=== PATIENT | female | born 1960 | race Caucasian/White ===

== ENCOUNTER → 2020-04-22 08:14 | Outpatient (BNVA) | payer OTHER, SELFPAY | PROVIDERS: PCP Family Medicine; Visit Provider Internal Medicine Cardiovascular Disease | DX: R06.00 Dyspnea, unspecified (principal); R41.9 Unspecified symptoms and signs involving cognitive functions and awareness; I10 Essential (primary) hypertension; E78.5 Hyperlipidemia, unspecified | CPT/HCPCS: 80048; 83735; 83880 ==

== ENCOUNTER 2020-06-12 14:42 | Emergency (ER) | payer OTHER, SELFPAY ==
[2020-06-12 14:43] VITALS: BP 122/63; PULSE 85; RESP 18; TEMP 37.1; O2SAT 95; BMI 26.3
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
[2020-06-12 15:42] LABS: Basophils # 0.1 10^3/uL (0.0-0.1); Basophils % 1.1 %; Eosinophils # 0.3 10^3/uL (0.0-0.8); Eosinophils % 2.8 %; Hemoglobin 15.3 g/dL (11.5-15.3); Lymphocytes # 1.6 10^3/uL (0.8-4.8); Lymphocytes % 16.7 %; Mean Corpuscular HGB Conc 33.3 g/dL (30.0-36.0); Mean Corpuscular Hemoglobin 29.9 pg (28.0-34.0); Mean Corpuscular Volume 89.8 fL (81-99); Mean Platelet Volume 11.2 fL (7.4-10.4); Monocytes # 0.7 10^3/uL (0.2-0.9); Monocytes % 6.9 %; Neutrophils # 6.87 10^3/uL (1.8-7.7); Neutrophils % 71.7 %; Nucleated Red Blood Cells % 0 %; Platelet Count 186 10^3/cmm (130-400); Red Blood Count 5.12 10^6/uL (4.1-5.3); Red Cell Distribution Width 13.2 % (12.1-15.1); White Blood Count 9.6 10^3/uL (4.0-10.0)
[2020-06-12 15:58] LABS: Albumin Level 4.4 g/dL (3.5-5.2); Potassium 3.5 mmol/L (3.5-5.1)
[2020-06-12 16:17] LABS: Alanine Aminotransferase 18 U/L (0-33); Alkaline Phosphatase 100 IU/L (35-105); Anion Gap 16.5 (5-19); Aspartate Amino Transferase 23 U/L (0-32); Blood Urea Nitrogen 8 mg/dL (8-23); Calcium 8.6 mg/dL (8.5-10.5); Carbon Dioxide 25 mmol/L (22-29); Globulin 2.5 g/dL (1.3-4.6); Glucose 112 mg/dL (65-115); Osmolality Calculated 287 mOsm/kg (285-295); Total Bilirubin 0.2 mg/dL (0.15-1.2); Total Protein 6.9 g/dL (6.6-8.7)
[2020-06-12 16:18] LABS: Chloride 101 mmol/L (98-107); Sodium 139 mmol/L (136-145)
[2020-06-12] MEDS: iohexol 300 mg/mL 100 mL Btl IV (16:25)
== END 2020-06-12 17:17 | disposition home or self-care (01) ==
PROVIDERS: Emergency Provider Physician Assistant; PCP Family Medicine
DX: S20.212A Contusion of left front wall of thorax, initial encounter (principal); S30.1XXA Contusion of abdominal wall, initial encounter; Z79.82 Long term (current) use of aspirin; I10 Essential (primary) hypertension; E78.5 Hyperlipidemia, unspecified; F17.210 Nicotine dependence, cigarettes, uncomplicated; V89.2XXA Person injured in unspecified motor-vehicle accident, traffic, initial encounter
CPT/HCPCS: 71260; 74177; 80053; 85025; 99283; Q9967

== ENCOUNTER 2020-07-06 18:27 | Inpatient (IN) | payer OTHER, SELFPAY ==
[2020-07-06 18:39] VITALS: PULSE 111; RESP 30; TEMP 37.3; O2SAT 88; BMI 25.8
--- NOTE | 2020-07-06 18:55 | CTR_ITS ---
PROCEDURE INFORMATION: Exam: CTA Chest With Contrast Exam date and time: 07/06/2020 7:42 PM Age: 60 years old Clinical indication: Shortness of breath; Patient HX: Worsening SOB x 1 week; Additional info: SOB, tachycardia, high pretest probability TECHNIQUE: Imaging protocol: Computed tomographic angiography of the chest with contrast. 3D rendering (Not supervised by radiologist): MIP and/or 3D reconstructed images were created by the technologist. Radiation optimization: All CT scans at this facility use at least one of these dose optimization techniques: automated exposure control; mA and/or kV adjustment per patient size (includes targeted exams where dose is matched to clinical indication); or iterative reconstruction. Contrast material: OMNI 350; Contrast volume: 71 ml; Contrast route: INTRAVENOUS (IV); COMPARISON: CT chest abd pel w con* 06/12/2020 4:39 PM RADIATION DOSE METRICS: Total DLP (mGy-cm): 575.02 FINDINGS: Pulmonary arteries: The pulmonary arteries are adequately opacified for evaluation to the subsegmental level. There is no filling defect to suggest embolism. Aorta: There is mild aortic atherosclerotic disease. Lungs: There are tree-in-bud opacities throughout both lungs. There is dense consolidation in the posterior and lateral basal segments of the left lower lobe. There is minimal consolidation in the lateral basal segment of the right lower lobe. Pleural spaces: There is no pleural effusion or pneumothorax. Heart: Heart size is normal. There is no pericardial effusion. There is mild coronary artery calcification. Lymph nodes: There is no mediastinal or hilar lymphadenopathy. Bones/joints: There is a nondisplaced fracture of the lateral left 9th rib with evidence of interval healing since 06/12/2020. The right ribs are unremarkable. The thoracic spine and visible portions of the clavicles, proximal humeri, and scapulae are intact. There is an acute or subacute fracture of the mid sternal body. See coronal series 601, image 49. Soft tissues: The extrathoracic soft tissues are unremarkable. Other findings: Visible structures in the upper abdomen are unremarkable. CT/CT angio chest PE protcl [id number] IMPRESSION: 1. Diffuse bilateral pulmonary tree-in-bud opacities with superimposed bilateral lower lobe consolidation consistent with infection. 2. No pulmonary embolism. 3. Subacute healing fracture of the left lateral 9th rib. 4. Acute or subacute fracture of the mid sternal body, new since 06/12/2020. Radiation Dose CTDIVOL = (mGy): DLP = 575.02 (mGy-cm)
--- NOTE | 2020-07-06 18:56 | ECG_ITS ---
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 Measurements Intervals [place] Rate: 107 P: 74 [place]: 162 QRS: 74 QRSD: 89 T: 71 QT: 317 QTc: 424 Interpretive Statements SINUS TACHYCARDIA NONSPECIFIC ST & T-WAVE ABNORMALITY No previous ECG available for comparison Electronically Signed On 07-07-2020 11:03:07 CDT by Obed Ghotra M.D. [id number] f
[2020-07-06 19:06] LABS: Basophils # 0.2 10^3/uL (0.0-0.1); Basophils % 0.8 %; Eosinophils % 0.1 %; Hematocrit 38.6 % (37.0-47.0); Hemoglobin 13.2 g/dL (11.5-15.3); Lymphocytes # 0.8 10^3/uL (0.8-4.8); Lymphocytes % 3.7 %; Mean Corpuscular HGB Conc 34.2 g/dL (30.0-36.0); Mean Corpuscular Hemoglobin 29.5 pg (28.0-34.0); Mean Corpuscular Volume 86.4 fL (81-99); Mean Platelet Volume 10.1 fL (7.4-10.4); Monocytes # 1.7 10^3/uL (0.2-0.9); Monocytes % 7.9 %; Neutrophils # 18.36 10^3/uL (1.8-7.7); Nucleated Red Blood Cells % 0 %; Platelet Count 286 10^3/cmm (130-400); Red Blood Count 4.47 10^6/uL (4.1-5.3); White Blood Count 21.4 10^3/uL (4.0-10.0)
--- NOTE | 2020-07-06 19:09 | PC.NURSE ---
EKG taken and given to provider
[2020-07-06 19:18] LABS: ABG PCO2 39.5 mmHg (35-45); ABG PH Result 7.48 (7.35-7.45); Arterial Blood Gas Hematocrit 38.4 % (37-47); Base Excess ABG 5.6 mmol/L (-2.0-2.0); Blood Gas Allen Test Pos; Blood Gas Sample Site Radial, right; Blood Gas Sample Type Arterial; HCO3 ABG 29.5 mmol/L (22-26); Oxygen Device NC; PO2 ABG 66.1 mmHg (80.0-100.0)
[2020-07-06 19:24] LABS: INR 1.14 (0.8-1.2)
[2020-07-06 19:28] LABS: Troponin(5th) Baseline 6 ng/L (0-10)
[2020-07-06 19:29] LABS: Lactic Sepsis W/Reflex 1.3 mmol/L (0.5-2.2)
[2020-07-06 19:33] VITALS: BP 120/69; PULSE 107; RESP 35; O2SAT 92
[2020-07-06 19:38] LABS: Alanine Aminotransferase 16 U/L (0-33); Albumin Level 3.7 g/dL (3.5-5.2); Alkaline Phosphatase 136 IU/L (35-105); Aspartate Amino Transferase 19 U/L (0-32); Blood Urea Nitrogen 6 mg/dL (8-23); Calcium 8.3 mg/dL (8.5-10.5); Carbon Dioxide 28 mmol/L (22-29); Chloride 85 mmol/L (98-107); Creatinine Clr Calc Pharmacy 122.0411; Globulin 2.6 g/dL (1.3-4.6); Glomerular Filtration Rate 125.9 mL/min (90-130); Glucose 149 mg/dL (65-115); NT Pro B Type Natriuretic Pept 605 pg/mL (0-125); Osmolality Calculated 260 mOsm/kg (285-295); Sodium 125 mmol/L (136-145); Total Bilirubin 0.6 mg/dL (0.15-1.2); Total Protein 6.3 g/dL (6.6-8.7)
[2020-07-06 19:40] LABS: Anion Gap 15.3 (5-19); Potassium 3.3 mmol/L (3.5-5.1)
[2020-07-06 19:43] LABS: D Dimer 2.38 ug/mIFEU (0-0.59)
--- NOTE | 2020-07-06 20:07 | PC.NURSE ---
PT to CT
[2020-07-06] MEDS: iohexol 350 mg/mL 100 mL Btl IV (20:14)
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
--- NOTE | 2020-07-06 20:56 | ECG_ITS ---
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 Measurements Intervals [place] Rate: 107 P: 81 [place]: 154 QRS: 79 QRSD: 92 T: 75 QT: 320 QTc: 427 Interpretive Statements SINUS TACHYCARDIA MINIMAL ST DEPRESSION [0.025+ mV ST DEPRESSION] No previous ECG available for comparison Electronically Signed On 07-07-2020 11:05:26 CDT by Obed Ghotra M.D. [id number]
[2020-07-06] MEDS: cefTRIAXone 1,000 MG in sodium chloride 0.9% (plus) 50 ML 100 MG IV (21:01)
[2020-07-06 21:03] VITALS: BP 137/83; PULSE 108; RESP 34; O2SAT 92
[2020-07-06] MEDS: azithromycin 500 MG in sodium chloride 0.9% 250 ML 250 MG IV (21:17)
[2020-07-06 21:22] LABS: Troponin 5 2HR 6.26 ng/L (0-10); Troponin 5 2HR Delta 0.26 ABS# (0-10)
[2020-07-06 21:30] LABS: Procalcitonin 0.18 ng/mL (0-0.5)
[2020-07-06 22:15] VITALS: BP 147/79; PULSE 113; RESP 25; O2SAT 91
[2020-07-06] MEDS: sodium chloride 0.9% 1,000 ML 150 ML IV (23:23)
[2020-07-06 23:49] VITALS: BP 156/71; PULSE 119; RESP 24; TEMP 37.8; O2SAT 91
--- NOTE | 2020-07-06 23:50 | ED_ITS ---
HPI - SOB/Dyspnea General: Chief Complaint: Shortness of Breath/Dyspnea Stated Complaint: Breathing Problem Time Seen by Provider: 07/06/20 18:47 Source: patient Mode of arrival: ambulatory Limitations: no limitations History of Present Illness: HPI Narrative: This is a 60-year-old female patient with a history of COPD who is not on oxygen chronically presents to the emergency department with worsening shortness of breath. 1 week ago she drove 6 hours to [place] for vacation and drove back again today. During her trip she developed shortness of breath and it progressively worsened and so she presents to the emergency department to be seen. On arrival to the ED she was hypoxic in triage and was placed on 4 L of oxygen via nasal cannula. Patient denies a fever at home, endorses cough, denies chest pain. She denies headaches, dizziness, or urinary symptoms MD elicited complaint: shortness of breath and cough Pertinent past history: COPD Onset (ago): hour(s) (8) Timing: constant and progressively worsening Severity: severe Exacerbating factors: nothing Relieving factors: oxygen and rest Known history of: COPD Associated symptoms: Reports cough; Deny abdominal pain, chest congestion, chest pain, diaphoresis, dizziness, extremity pain, fever(s), hemoptysis, lightheadedness, myalgias, nausea, orthopnea, palpitations, paresthesias, polydipsia, polyuria, rash, sense of impending doom, syncope or vomiting Review of Systems General: Reports: 10 or more systems reviewed and unremarkable except in HPI and below Const: Denies: fever(s) or diaphoresis Card: Denies: chest pain, palpitations, lightheadedness, syncope or orthopnea Resp: Denies: hemoptysis or chest congestion GI: Denies: abdominal pain, nausea or vomiting Musc: Denies: extremity pain Neuro: Denies: dizziness Endo: Denies: polyuria or polydipsia PFS ED PFSH: Medical History Anxiety COPD (chronic obstructive pulmonary disease) HTN (hypertension) Hyperlipidemia Surgical History H/O: hysterectomy History of appendectomy Previous back surgery Family History Mother Stroke Social History Smoking and tobacco status: former smoker Quit status (tobacco): has quit using tobacco Former quit date comment: 1 week ago Alcohol intake: current Alcohol intake frequency: holidays/special occasions only Substance/Drug Use: never Adopted: Yes Lives independently: Yes Housing: House Physical Exam Const: COMMON NORMALS: no acute distress, average body habitus, patient oriented x3, no limitations, healthy appearing, alert and well nourished HENMT: COMMON NORMALS: normocephalic, atraumatic and moist oral mucous membranes HEAD & SCALP: normocephalic and atraumatic Neck/C-Spine: COMMON NORMALS: no meningeal signs and no JVD Resp: COMMON NORMALS: normal respiratory effort, No retractions, No use of accessory muscles and percussion normal AUSCULTATION: rales and diminished lung sounds PERCUSSION: percussion normal Cardio: COMMON NORMALS: no JVD, regular rhythm, S1 normal heart sound present, S2 normal heart sound present, No gallops present (Cardio), No clicks present (Cardio), No murmurs present (Cardio), No rub (Cardio) and Peripheral pulses 2+ throughout RATE: tachycardic RHYTHM: regular rhythm HEART SOUNDS: S1 normal heart sound present and S2 normal heart sound present PERIPHERAL PULSES: Peripheral pulses 2+ throughout GI: COMMON NORMALS: Normal to inspection, nondistended, normoactive bowel sounds present, Soft to palpation, non-tender, No hepatosplenomegaly present, no masses and no bruits PALPATION: Yes Soft to palpation and Yes No hepatosplenomegaly present Extremity: COMMON NORMALS: normal to inspection, full ROM, capillary refill normal, no calf tenderness and no pedal edema Neuro: COMMON NORMALS: patient oriented x3 SENSORIUM/ORIENTATION: Yes alert MENINGEAL SIGNS: Yes no meningeal signs Skin: COMMON NORMALS: no rashes or lesions noted, no wounds, turgor normal, no jaundice, no petechiae and no mottling GENERAL SKIN EXAM: no rashes or lesions noted and turgor normal Course Reevaluation(s): Reevaluation #1: Discussed her lab and imaging findings with her. Explained that she has pneumonia and together with hypoxia will benefit from hospital admission. She also has significant leukocytosis. She voiced understanding and is in agreement with the plan. Time: 20:25 Consultations: Consultation #1: Discussed the patient with Dr. Chan, hospitalist and he kindly accepted the patient to his service. Time: 20:40 Vital Signs: Vital signs: Vital Signs Temperature 100.0 F H 07/06/20 23:49 Pulse Rate 113 H 07/07/20 01:05 Respiratory Rate 30 H 07/07/20 00:52 Blood Pressure 156/71 07/06/20 23:49 Pulse Oximetry 95 07/07/20 00:52 MDM - SOB/Dyspnea MDM Narrative: Medical decision making narrative: 60-year-old female patient who presents to the emergency department with shortness of breath and developed on a road trip back from [place]. In the emergency department she was noted to be hypoxic, tachycardic, has a low-grade temperature, has leukocytosis, and CT scan shows pneumonia. Because she was high pretest probability for a PE a CTA was done and this was negative for PE. She is meeting sepsis criteria and is admitted to the hospitalist service for further evaluation and management Lab Data: Labs: Lab Results 07/06/20 07/06/20 07/06/20 Range/Units 18:55 18:55 18:55 WBC 21.4 H (4.0-10.0) 10^3/ uL RBC 4.47 (4.1-5.3) 10^6/u L Hgb 13.2 (11.5-15.3) g/dL Hct 38.6 (37.0-47.0) % MCV 86.4 (81-99) fL MCH 29.5 (28.0-34.0) pg MCHC 34.2 (30.0-36.0) g/dL RDW 13.0 (12.1-15.1) % Plt Count 286 (130-400) 10^3/c mm MPV 10.1 (7.4-10.4) fL Neut % (Auto) 86.0 % Lymph % (Auto) 3.7 % [place] % (Auto) 7.9 % Eos % (Auto) 0.1 % Baso % (Auto) 0.8 % Neut # (Auto) 18.36 H (1.8-7.7) 10^3/u L Lymph # (Auto) 0.8 (0.8-4.8) 10^3/u L [place] # (Auto) 1.7 H (0.2-0.9) 10^3/u L Eos # (Auto) 0.0 (0.0-0.8) 10^3/u L Baso # (Auto) 0.2 H (0.0-0.1) 10^3/u L Nucleated RBC % (a uto) 0 % Nucleated RBCs # 0.0 /100WBC PT 15.00 H (12.1-14.9) SECO NDS INR 1.14 (0.8-1.2) D-Dimer 2.38 H (0-0.59) ug/mIFE U Specimen Type Sample Site ABG pH (7.35-7.45) ABG pCO2 (35-45) mmHg ABG pO2 (80.0-100.0) mmH g ABG HCO3 (22-26) mmol/L ABG Base Excess (-2.0-2.0) mmol/ L Rick Test Hematocrit (37-47) % O2 Delivery Device O2 Liters/Min % Nanotechnology Technician ID Sodium 125 L (136-145) mmol/L Potassium 3.3 L (3.5-5.1) mmol/L Chloride 85 L (98-107) mmol/L Carbon Dioxide 28 (22-29) mmol/L Anion Gap 15.3 (5-19) BUN 6 L (8-23) mg/dL Creatinine 0.5 (0.5-0.9) mg/dL GFR Calculation 125.9 (90-130) mL/min Glucose 149 H (65-115) mg/dL Calculated Osmolal ity 260 L (285-295) mOsm/k g Lactic Acid (0.5-2.2) mmol/L Calcium 8.3 L (8.5-10.5) mg/dL Total Bilirubin 0.6 (0.15-1.2) mg/dL AST 19 (0-32) U/L ALT 16 (0-33) U/L Alkaline Phosphata se 136 H (35-105) IU/L Troponin T Baselin e (0-10) ng/L Troponin T 120 Min [place] (0-10) ng/L Delta Troponin T (0-10) ABS# NT-Pro-B Natriuret Pep 605 H (0-125) pg/mL Total Protein 6.3 L (6.6-8.7) g/dL Albumin 3.7 (3.5-5.2) g/dL Globulin 2.6 (1.3-4.6) g/dL Procalcitonin (0-0.5) ng/mL 07/06/20 07/06/20 07/06/20 Range/Units 18:55 18:55 19:10 WBC (4.0-10.0) 10^3/ uL RBC (4.1-5.3) 10^6/u L Hgb (11.5-15.3) g/dL Hct (37.0-47.0) % MCV (81-99) fL MCH (28.0-34.0) pg MCHC (30.0-36.0) g/dL RDW (12.1-15.1) % Plt Count (130-400) 10^3/c mm MPV (7.4-10.4) fL Neut % (Auto) % Lymph % (Auto) % [place] % (Auto) % Eos % (Auto) % Baso % (Auto) % Neut # (Auto) (1.8-7.7) 10^3/u L Lymph # (Auto) (0.8-4.8) 10^3/u L [place] # (Auto) (0.2-0.9) 10^3/u L Eos # (Auto) (0.0-0.8) 10^3/u L Baso # (Auto) (0.0-0.1) 10^3/u L Nucleated RBC % (a uto) % Nucleated RBCs # /100WBC PT (12.1-14.9) SECO NDS INR (0.8-1.2) D-Dimer (0-0.59) ug/mIFE U Specimen Type Arterial Sample Site Radial, right ABG pH 7.48 H (7.35-7.45) ABG pCO2 39.5 (35-45) mmHg ABG pO2 66.1 L (80.0-100.0) mmH g ABG HCO3 29.5 H (22-26) mmol/L ABG Base Excess 5.6 H (-2.0-2.0) mmol/ L Rick Test Pos Hematocrit 38.4 (37-47) % O2 Delivery Device Nc O2 Liters/Min 4.0 % Nanotechnology Technician ID ellpe Sodium (136-145) mmol/L Potassium (3.5-5.1) mmol/L Chloride (98-107) mmol/L Carbon Dioxide (22-29) mmol/L Anion Gap (5-19) BUN (8-23) mg/dL Creatinine (0.5-0.9) mg/dL GFR Calculation (90-130) mL/min Glucose (65-115) mg/dL Calculated Osmolal ity (285-295) mOsm/k g Lactic Acid 1.3 (0.5-2.2) mmol/L Calcium (8.5-10.5) mg/dL Total Bilirubin (0.15-1.2) mg/dL AST (0-32) U/L ALT (0-33) U/L Alkaline Phosphata se (35-105) IU/L Troponin T Baselin e 6 (0-10) ng/L Troponin T 120 Min [place] (0-10) ng/L Delta Troponin T (0-10) ABS# NT-Pro-B Natriuret Pep (0-125) pg/mL Total Protein (6.6-8.7) g/dL Albumin (3.5-5.2) g/dL Globulin (1.3-4.6) g/dL Procalcitonin (0-0.5) ng/mL 07/06/20 07/06/20 Range/Units 20:55 20:55 WBC (4.0-10.0) 10^3/ uL RBC (4.1-5.3) 10^6/u L Hgb (11.5-15.3) g/dL Hct (37.0-47.0) % MCV (81-99) fL MCH (28.0-34.0) pg MCHC (30.0-36.0) g/dL RDW (12.1-15.1) % Plt Count (130-400) 10^3/c mm MPV (7.4-10.4) fL Neut % (Auto) % Lymph % (Auto) % [place] % (Auto) % Eos % (Auto) % Baso % (Auto) % Neut # (Auto) (1.8-7.7) 10^3/u L Lymph # (Auto) (0.8-4.8) 10^3/u L [place] # (Auto) (0.2-0.9) 10^3/u L Eos # (Auto) (0.0-0.8) 10^3/u L Baso # (Auto) (0.0-0.1) 10^3/u L Nucleated RBC % (a uto) % Nucleated RBCs # /100WBC PT (12.1-14.9) SECO NDS INR (0.8-1.2) D-Dimer (0-0.59) ug/mIFE U Specimen Type Sample Site ABG pH (7.35-7.45) ABG pCO2 (35-45) mmHg ABG pO2 (80.0-100.0) mmH g ABG HCO3 (22-26) mmol/L ABG Base Excess (-2.0-2.0) mmol/ L Rick Test Hematocrit (37-47) % O2 Delivery Device O2 Liters/Min % Nanotechnology Technician ID Sodium (136-145) mmol/L Potassium (3.5-5.1) mmol/L Chloride (98-107) mmol/L Carbon Dioxide (22-29) mmol/L Anion Gap (5-19) BUN (8-23) mg/dL Creatinine (0.5-0.9) mg/dL GFR Calculation (90-130) mL/min Glucose (65-115) mg/dL Calculated Osmolal ity (285-295) mOsm/k g Lactic Acid (0.5-2.2) mmol/L Calcium (8.5-10.5) mg/dL Total Bilirubin (0.15-1.2) mg/dL AST (0-32) U/L ALT (0-33) U/L Alkaline Phosphata se (35-105) IU/L Troponin T Baselin e (0-10) ng/L Troponin T 120 Min [place] 6.26 (0-10) ng/L Delta Troponin T 0.26 (0-10) ABS# NT-Pro-B Natriuret Pep (0-125) pg/mL Total Protein (6.6-8.7) g/dL Albumin (3.5-5.2) g/dL Globulin (1.3-4.6) g/dL Procalcitonin 0.18 (0-0.5) ng/mL Imaging Data^: CTA Chest: Attestation: I personally reviewed and interpreted this imaging study as follows: Radiologist's impression: [facility] [place], [place] [address]CX Scan ReportSigned Patient: Amy Cooper #: [id number]: 1960Acct#:[id number]/Sex: 60 / FADM Date: 07/06/20Loc: ERRoom/Bed:Attending Dr: Ordering Provider/Ordering MD: Mitchell Casas MD, [facility] [place] Date of Service: 07/06/20 Procedure(s): CT angio chest PE protcl [id number] Accession Number(s): [id number] Report Number: [id number] PROCEDURE INFORMATION: Exam: CTA Chest With Contrast Exam date and time: 07/06/2020 7:42 PM Age: 60 years old Clinical indication: Shortness of breath; Patient HX: Worsening SOB x 1 week; Additional info: SOB, tachycardia, high pretest probability TECHNIQUE: Imaging protocol: Computed tomographic angiography of the chest with contrast. 3D rendering (Not supervised by radiologist): MIP and/or 3D reconstructed images were created by the technologist. Radiation optimization: All CT scans at this facility use at least one of these dose optimization techniques: automated exposure control; mA and/or kV adjustment per patient size (includes targeted exams where dose is matched to clinical indication); or iterative reconstruction. Contrast material: OMNI 350; Contrast volume: 71 ml; Contrast route: INTRAVENOUS (IV); COMPARISON: CT chest abd pel w con* 06/12/2020 4:39 PM RADIATION DOSE METRICS: Total DLP (mGy-cm): 575.02 FINDINGS: Pulmonary arteries: The pulmonary arteries are adequately opacified for evaluation to the subsegmental level. There is no filling defect to suggest embolism. Aorta: There is mild aortic atherosclerotic disease. Lungs: There are tree-in-bud opacities throughout both lungs. There is dense consolidation in the posterior and lateral basal segments of the left lower lobe. There is minimal consolidation in the lateral basal segment of the right lower lobe. Pleural spaces: There is no pleural effusion or pneumothorax. Heart: Heart size is normal. There is no pericardial effusion. There is mild coronary artery calcification. Lymph nodes: There is no mediastinal or hilar lymphadenopathy. Bones/joints: There is a nondisplaced fracture of the lateral left 9th rib with evidence of interval healing since 06/12/2020. The right ribs are unremarkable. The thoracic spine and visible portions of the clavicles, proximal humeri, and scapulae are intact. There is an acute or subacute fracture of the mid sternal body. See coronal series 601, image 49. Soft tissues: The extrathoracic soft tissues are unremarkable. Other findings: Visible structures in the upper abdomen are unremarkable. CT/CT angio chest PE protcl [id number] IMPRESSION: 1. Diffuse bilateral pulmonary tree-in-bud opacities with superimposed bilateral lower lobe consolidation consistent with infection. 2. No pulmonary embolism. 3. Subacute healing fracture of the left lateral 9th rib. 4. Acute or subacute fracture of the mid sternal body, new since 06/12/2020. Radiation Dose CTDIVOL = (mGy): DLP = 575.02 (mGy-cm) Dictated By:Martin Wellington MDSigned By:Martin Wellington MDSigned Date/Time:07/06/202044DD/ 43 EKG Data^: EKG 1: Attestation: I personally reviewed and interpreted this EKG as follows: EKG Interpretation Date: 07/06/20 EKG interpretation time: 18:59 Prior EKG tracings: not available for review Interpretation: Sinus tachycardia. Heart rate [address] changes. EKG 2: Attestation: I personally reviewed and interpreted this EKG as follows: EKG Interpretation Date: 07/06/20 EKG interpretation time: 20:50 Prior EKG tracings: available for review Interpretation: Sinus tachycardia. Heart rate [address] changes. No significant change from earlier today. Discharge Plan Discharge Patient Disposition: Admitted As Inpatient Admit Provider: Ricci Chan Clinical Impression: Acute respiratory failure with hypoxia Sepsis Qualifiers: Sepsis type: sepsis due to unspecified organism Sepsis acute organ dysfunction status: with acute organ dysfunction Severe sepsis acute organ dysfunction type: acute respiratory failure Acute respiratory failure type: with hypoxia Severe sepsis shock status: without septic shock Qualified Code(s): A41.9 - Sepsis, unspecified organism CAP (community acquired pneumonia) Qualifiers: Laterality: unspecified laterality Qualified Code(s): J18.9 - Pneumonia, unspecified organism Sternal fracture Qualifiers: Encounter type: initial encounter Sternal location: body of sternum Fracture type: closed Qualified Code(s): S22.22XA - Fracture of body of sternum, initial encounter for closed fracture Condition: Stable Coding Level of Care Code ED Personal Lines Sales Executive for Sara Marcum
[2020-07-07] VITALS (16 sets, daily range): BP systolic 92–126; BP diastolic 53–77; PULSE 78–146; RESP 16–30; TEMP 36.4–37.2; O2SAT 85–97
[2020-07-07] MEDS: LORazepam 0.5 mg Tablet PO (00:29)
[2020-07-07] MEDS: enoxaparin 40 mg/0.4 mL Syringe SUBCUT (00:29)
[2020-07-07] MEDS: ipratropium-albuterol 3 mL Neb INHALATION ×5 (00:52→20:06)
--- NOTE | 2020-07-07 00:56 | ECG_ITS ---
[facility] ED Test Date: 2020-07-07 Pat Name: Amy Cooper Department: Room: 251 Gender: Female Booster Assembler: : 1960 Requested By: Mitchell Casas I Order Number: [id number] Jim MD: Marizol Lopez M.D. Measurements Intervals [place] Rate: 111 P: 75 NM: 183 QRS: 79 QRSD: 93 T: 76 QT: 323 QTc: 439 Interpretive Statements SINUS TACHYCARDIA MODERATE ST DEPRESSION [0.05+ mV ST DEPRESSION] Compared to ECG 07/06/2020 20:48:59 No significant changes Electronically Signed On 07-16-2020 16:36:16 CDT by Marizol Lopez M.D. [id number]
--- NOTE | 2020-07-07 01:19 | USCV_ITS ---
Kenneth Amy Age: 60 Gender: F : 1960 Exam Date: 07/07/2020 13:14 Ordering Phys: Ricci Chan MD Technologist: Gene Jacinto [place] [facility] [place] Indication: CHF BP: 124 / 73 HR: 83 Rhythm: Sinus Technical Quality: Adequate MEASUREMENTS (Male / Female) Normal Values 2D ECHO LV Diastolic Diameter PLAX 4.1 cm 4.2 - 5.9 / 3.9 - 5.3 cm LV Systolic Diameter PLAX 2.1 cm IVS Diastolic Thickness 0.9 cm 0.6 - 1.0 / 0.6 - 0.9 cm IVS Systolic Thickness 1.1 cm LVPW Diastolic Thickness 0.8 cm 0.6 - 1.0 / 0.6 - 0.9 cm LVPW Systolic Thickness 1.0 cm LVOT Diameter 2.1 cm LV Ejection Fraction 2D Teich 79.2 % LV Ejection Fraction MOD 2C 66.7 % LV Ejection Fraction 2C AL 67.5 % LA Diameter 2.5 cm LA Width 3.4 cm LA Height 4.6 cm RA Width 3.7 cm RA Height 4.1 cm Aorta at Sinotubular Diameter 1.8 cm M-MODE MV E Point Septal Separation 0.9 cm DOPPLER AV Peak Velocity 334.0 cm/s LVOT Peak Velocity 117.0 cm/s AV Area Cont Eq vti 1.4 cm squared AV Area Cont Eq pk 1.2 cm squared MV Area PHT 5.0 cm squared Mitral E to A Ratio 0.9 MV E' Velocity 48.5 cm/s Mitral E to MV E' Ratio 7.7 Mitral E to LV E' Lateral Ratio 8.6 Mitral E to LV E' Septal Ratio 6.9 TR Peak Velocity 215.0 cm/s TR Peak Gradient 18.5 mmHg TV Peak E Velocity 98.0 cm/s Right Atrial Pressure 3.0 mmHg Pulmonary Artery Systolic Pressu 21.5 mmHg PV Peak Velocity 144.0 cm/s FINDINGS Left Ventricle Normal left ventricular size. LV systolic function is normal with EF of 55-60%. No regional wall motion abnormalities. Normal diastolic function Right Ventricle The right ventricle is normal in size and function. Right Atrium The right atrium is normal in size. Left Atrium The left atrium is normal in size. Mitral Valve Structurally normal mitral valve without significant stenosis or prolapse. There is mild mitral regurgitation. Aortic Valve Grossly normal. Moderate aortic stenosis with aortic valve area of 1.2cm2 and mean gradient across the aortic valve of 21mmHg. There is mild aortic regurgitation. Tricuspid Valve Structurally normal tricuspid valve without significant stenosis or regurgitation. Insufficient TR jet to calculate RVSP Pulmonic Valve Structurally normal pulmonic valve without significant stenosis. There is no pulmonic regurgitation. Pericardium Normal pericardium without effusion. Aorta Normal ascending aorta dimension. CONCLUSIONS LV systolic function is normal with EF of 55-60% Diastolic function is normal Moderate aortic stenosis is noted. Mean gradient across the valve of 21mmHg and aortic valve area of 1.2cm2 Mild mitral regurgitation No comparison studies are available Obed Ghotra MD (Electronically Signed) Final Date: 07 Jul 2020 18:34 S
[2020-07-07] MEDS: potassium chloride ER 20 mEq Tablet 40 MEQ PO (01:58)
[2020-07-07 06:45] LABS: Basophils % 0.1 %; Eosinophils % 0.1 %; Hematocrit 36.7 % (37.0-47.0); Hemoglobin 12.2 g/dL (11.5-15.3); Lymphocytes # 1.1 10^3/uL (0.8-4.8); Lymphocytes % 4.6 %; Mean Corpuscular HGB Conc 33.2 g/dL (30.0-36.0); Mean Corpuscular Hemoglobin 29.3 pg (28.0-34.0); Mean Platelet Volume 10.9 fL (7.4-10.4); Monocytes # 1.8 10^3/uL (0.2-0.9); Monocytes % 7.7 %; Neutrophils # 20.36 10^3/uL (1.8-7.7); Neutrophils % 86.2 %; Nucleated Red Blood Cells % 0 %; Platelet Count 252 10^3/cmm (130-400); Red Blood Count 4.17 10^6/uL (4.1-5.3); Red Cell Distribution Width 13.2 % (12.1-15.1); White Blood Count 23.6 10^3/uL (4.0-10.0)
[2020-07-07 07:03] LABS: Anion Gap 13.5 (5-19); Blood Urea Nitrogen 5 mg/dL (8-23); Calcium 8.7 mg/dL (8.5-10.5); Carbon Dioxide 31 mmol/L (22-29); Chloride 89 mmol/L (98-107); Creatinine Clr Calc Pharmacy 122.0411; Glomerular Filtration Rate 125.9 mL/min (90-130); Glucose 139 mg/dL (65-115); Osmolality Calculated 270 mOsm/kg (285-295); Potassium 3.5 mmol/L (3.5-5.1); Sodium 130 mmol/L (136-145)
[2020-07-07 07:47] LABS: Slide Review Slide Review Perform
[2020-07-07] MEDS: potassium chloride ER 20 mEq Tablet PO (09:17)
[2020-07-07] MEDS: hydroCHLOROthiazide 25 mg Tablet PO (09:17)
[2020-07-07] MEDS: aspirin 81 mg EC Tablet PO (09:17)
[2020-07-07] MEDS: predniSONE 20 mg Tablet 40 MG PO (09:17)
[2020-07-07 09:52] LABS: NT Pro B Type Natriuretic Pept 1077 pg/mL (0-125)
--- NOTE | 2020-07-07 11:26 | PC.CHAP ---
Pastoral Care Encounter/Spiritual Assessment Type of Contact [] Declined resident care manager visit [] Patient/Family/Request visit [] Outpatient visit [x] Follow-up visit [] Physician referral [] Code/Alert [] Routine visit [] Staff referral [] Actively dying [] Patient sleeping [] Family support [] [] Out of room [] Palliative care [] [] Receiving care in room [] Pre-surgical visit [] Trauma [] Long length of stay [] ICU visit [] Other: Relational/Emotional Strength [] Patient feels connected with others/family/visitors/staff [] Distress [] Loneliness/isolation [] Abandonment Spirituality of Patient [] Person of Celia [] Attends Quaker of their Celia [] Believes in Prayer [] Reads Bible or Mandaen materials [] There are Spiritual issues to be addressed Film Editor Supervisor Interventions [] Prayer [] Active listening [] Non-anxious presence [] Spiritual/emotional support [] Crisis/trauma care [] Spiritual counseling [] Bereavement support [] Provided bereavement packet [] Provided Bible/devotional materials [] Provided toy/stuffed animal, coloring book to patient or family member [] Provided Communion [] Anointing/[place] [] Salvation [] Completed spiritual assessment [] Other: Impact on Illness or Injury [] Angry [] Fearful [] Anxious [] Often cries [] Exhaustion [] Unable to work [] Unable to attend sikhism [] Unable to walk/stand [] Unable to read [] Unable to drive [] Unable to eat/drink [] Unable to sleep [] Unable to be with family [] Patient intubated [] Other: Summary covid 19 Time spent with patient
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
[2020-07-07] MEDS: cefTRIAXone 1,000 MG in sodium chloride 0.9% (plus) 50 ML 100 MG IV (21:27)
[2020-07-07] MEDS: azithromycin 500 MG in sodium chloride 0.9% 250 ML 250 MG IV (22:22)
[2020-07-08] VITALS (10 sets, daily range): BP systolic 93–108; BP diastolic 49–68; PULSE 62–88; RESP 16–18; TEMP 36.6–37.1; O2SAT 91–97
[2020-07-08] MEDS: enoxaparin 40 mg/0.4 mL Syringe SUBCUT (00:19)
[2020-07-08 06:14] LABS: Basophils # 0.1 10^3/uL (0.0-0.1); Basophils % 0.4 %; Eosinophils % 0.1 %; Hematocrit 35.9 % (37.0-47.0); Hemoglobin 11.8 g/dL (11.5-15.3); Lymphocytes # 1.2 10^3/uL (0.8-4.8); Lymphocytes % 5.6 %; Mean Corpuscular HGB Conc 32.9 g/dL (30.0-36.0); Mean Corpuscular Volume 88.2 fL (81-99); Mean Platelet Volume 10.8 fL (7.4-10.4); Monocytes # 0.4 10^3/uL (0.2-0.9); Monocytes % 1.9 %; Neutrophils # 19.54 10^3/uL (1.8-7.7); Neutrophils % 90.5 %; Nucleated Red Blood Cells % 0 %; Platelet Count 307 10^3/cmm (130-400); Red Blood Count 4.07 10^6/uL (4.1-5.3); Red Cell Distribution Width 13.2 % (12.1-15.1); White Blood Count 21.6 10^3/uL (4.0-10.0)
[2020-07-08 06:45] LABS: NT Pro B Type Natriuretic Pept 1440 pg/mL (0-125); Procalcitonin 0.17 ng/mL (0-0.5)
[2020-07-08 06:57] LABS: Alanine Aminotransferase 18 U/L (0-33); Albumin Level 3.2 g/dL (3.5-5.2); Alkaline Phosphatase 166 IU/L (35-105); Anion Gap 14.9 (5-19); Aspartate Amino Transferase 17 U/L (0-32); Blood Urea Nitrogen 12 mg/dL (8-23); C Reactive Protein 134.5 mg/L (0.0-4.9); Carbon Dioxide 29 mmol/L (22-29); Chloride 95 mmol/L (98-107); Glomerular Filtration Rate 162.8 mL/min (90-130); Glucose 148 mg/dL (65-115); Magnesium 2.4 mg/dL (1.7-2.3); Osmolality Calculated 283 mOsm/kg (285-295); Phosphorus 4.4 mg/dL (2.5-4.5); Potassium 3.9 mmol/L (3.5-5.1); Sodium 135 mmol/L (136-145); Total Bilirubin 0.3 mg/dL (0.15-1.2); Total Protein 6.2 g/dL (6.6-8.7)
[2020-07-08 07:00] LABS: Creatinine Clr Calc Pharmacy 152.5514
[2020-07-08] MEDS: ipratropium-albuterol 3 mL Neb INHALATION ×2 (08:25→21:33)
[2020-07-08] MEDS: hydroCHLOROthiazide 25 mg Tablet PO (09:29)
[2020-07-08] MEDS: potassium chloride ER 20 mEq Tablet PO (09:29)
[2020-07-08] MEDS: aspirin 81 mg EC Tablet PO (09:29)
--- NOTE | 2020-07-08 09:41 | ECG_ITS ---
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 Measurements Intervals [place] Rate: 73 P: 66 [place]: 159 QRS: 63 QRSD: 82 T: 67 QT: 411 QTc: 455 Interpretive Statements SINUS RHYTHM Compared to ECG 07/07/2020 00:48:13 Sinus tachycardia no longer present ST (T wave) deviation no longer present Electronically Signed On 07-16-2020 16:29:53 CDT by Marizol Lopez M.D. [id number]
[2020-07-08 11:02] LABS: Troponin(5th) Baseline 6 ng/L (0-10)
--- NOTE | 2020-07-08 11:41 | ECG_ITS ---
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 Measurements Intervals [place] Rate: 80 P: 70 [place]: 158 QRS: 66 QRSD: 82 T: 71 QT: 388 QTc: 450 Interpretive Statements SINUS RHYTHM Compared to ECG 07/08/2020 11:34:26 No significant changes Electronically Signed On 07-16-2020 16:35:54 CDT by Marizol Lopez M.D. [id number]
[2020-07-08] MEDS: FUROsemide 10 mg/mL SDV 4mL 40 MG IVP (12:22)
[2020-07-08 13:14] LABS: Coronavirus Test Green County Not Detected
[2020-07-08 13:17] LABS: Troponin 5 2HR Delta 0 ABS# (0-10)
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
[2020-07-08 16:56] LABS: Troponin 5 6HR Delta 0 ng/L (0-12)
[2020-07-08] MEDS: cefTRIAXone 1,000 MG in sodium chloride 0.9% (plus) 50 ML 100 MG IV (21:22)
[2020-07-08] MEDS: atorvastatin 40 mg Tablet PO (21:22)
[2020-07-08] MEDS: azithromycin 500 MG in sodium chloride 0.9% 250 ML 250 MG IV (22:46)
[2020-07-09] VITALS (9 sets, daily range): BP systolic 100–128; BP diastolic 56–63; PULSE 62–98; RESP 16–19; TEMP 36.4–36.8; O2SAT 84–94
[2020-07-09] MEDS: enoxaparin 40 mg/0.4 mL Syringe SUBCUT (00:07)
[2020-07-09 05:37] LABS: Basophils # 0.1 10^3/uL (0.0-0.1); Basophils % 0.4 %; Hematocrit 36.6 % (37.0-47.0); Hemoglobin 11.9 g/dL (11.5-15.3); Lymphocytes # 1.9 10^3/uL (0.8-4.8); Lymphocytes % 6.6 %; Mean Corpuscular HGB Conc 32.5 g/dL (30.0-36.0); Mean Corpuscular Hemoglobin 28.7 pg (28.0-34.0); Mean Corpuscular Volume 88.4 fL (81-99); Mean Platelet Volume 10.6 fL (7.4-10.4); Monocytes # 0.6 10^3/uL (0.2-0.9); Monocytes % 2.1 %; Neutrophils # 25.21 10^3/uL (1.8-7.7); Neutrophils % 88.8 %; Nucleated Red Blood Cells % 0 %; Platelet Count 367 10^3/cmm (130-400); Red Blood Count 4.14 10^6/uL (4.1-5.3); Red Cell Distribution Width 13.3 % (12.1-15.1); White Blood Count 28.4 10^3/uL (4.0-10.0)
[2020-07-09 06:12] LABS: Alanine Aminotransferase 18 U/L (0-33); Alkaline Phosphatase 157 IU/L (35-105); Anion Gap 14.7 (5-19); Aspartate Amino Transferase 15 U/L (0-32); Blood Urea Nitrogen 20 mg/dL (8-23); C Reactive Protein 53.3 mg/L (0.0-4.9); Calcium 8.8 mg/dL (8.5-10.5); Carbon Dioxide 29 mmol/L (22-29); Chloride 93 mmol/L (98-107); Glucose 145 mg/dL (65-115); Magnesium 2.4 mg/dL (1.7-2.3); NT Pro B Type Natriuretic Pept 942 pg/mL (0-125); Osmolality Calculated 281 mOsm/kg (285-295); Phosphorus 4.9 mg/dL (2.5-4.5); Potassium 3.7 mmol/L (3.5-5.1); Procalcitonin 0.12 ng/mL (0-0.5); Sodium 133 mmol/L (136-145); Total Bilirubin 0.2 mg/dL (0.15-1.2)
[2020-07-09 06:32] LABS: Slide Review Slide Review Perform
[2020-07-09] MEDS: aspirin 81 mg EC Tablet PO (08:25)
[2020-07-09] MEDS: hydroCHLOROthiazide 25 mg Tablet PO (08:25)
[2020-07-09] MEDS: potassium chloride ER 20 mEq Tablet PO (08:26)
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
[2020-07-09] MEDS: ipratropium-albuterol 3 mL Neb INHALATION (14:57)
--- NOTE | 2020-07-09 16:29 | PC.RESP ---
Pulmonary Rehab information sent to patient.
== END 2020-07-09 17:25 | disposition home or self-care (01) | DRG 871 ==
LOC: ER 22:48 → MEDSURG 23:00
PROVIDERS: Admitting Provider Internal Medicine; Emergency Provider Family Medicine; PCP Family Medicine; Visit Provider Family Medicine
DX: A41.9 Sepsis, unspecified organism (principal); J18.9 Pneumonia, unspecified organism; J96.01 Acute respiratory failure with hypoxia; E87.3 Alkalosis; S22.22XA Fracture of body of sternum, initial encounter for closed fracture; E87.0 Hyperosmolality and hypernatremia; J44.0 Chronic obstructive pulmonary disease with (acute) lower respiratory infection; S22.32XD Fracture of one rib, left side, subsequent encounter for fracture with routine healing; V89.2XXD Person injured in unspecified motor-vehicle accident, traffic, subsequent encounter; V89.2XXA Person injured in unspecified motor-vehicle accident, traffic, initial encounter; F17.211 Nicotine dependence, cigarettes, in remission; E87.6 Hypokalemia; E87.70 Fluid overload, unspecified; I10 Essential (primary) hypertension; E78.5 Hyperlipidemia, unspecified; Z79.82 Long term (current) use of aspirin; Z66 Do not resuscitate
CPT/HCPCS: 36415; 36600; 71275; 80048; 80053; 82803; 83605; 83735; 83880; 84100; 84145; 84484; 85025; 85378; 85610; 86140; 86403; 87040; 87070; 87077; 87205; 87449; 87635; 93005; 93306; 94640; 96365; 96367; 96372; 99291; J0456; J0696; J1650; J1940; J2920; J7030; J7050; J7512; Q9967

== ENCOUNTER → 2020-08-18 10:00 | Outpatient (BNVA) | payer OTHER, SELFPAY | PROVIDERS: PCP Family Medicine; Visit Provider Internal Medicine Critical Care Medicine | DX: Z20.822 Contact with and (suspected) exposure to COVID-19 (principal); J44.9 Chronic obstructive pulmonary disease, unspecified | CPT/HCPCS: 87635 ==

== ENCOUNTER 2020-08-21 08:06 | Outpatient (CLI) | payer OTHER, SELFPAY ==
--- NOTE | 2020-08-21 09:44 | PFTS_ITS ---
Date of Study:08/21/20 Date of Dictation: MECHANICS: Forced vital capacity (FVC) is normal. Forced expiratory volume in one second (FEV1) is reduced. FEV1/FVC is normal. FLOW VOLUME LOOP: Reduced flow with scooping. LUNG VOLUMES: Total lung capacity (TLC) is normal. Residual volume (RV) is increased. DIFFUSING CAPACITY FOR CARBON MONOXIDE: Normal. INTERPRETATION: The prebronchodilator spirometry is consistent with moderate obstruction. The postbronchodilator spirometry is consistent with mild restriction. There is no significant postbronchodilator response. Flow volume loop is suggestive of obstructive airways disease. Lung volumes are suggestive of air trapping. The patient likely has a combined obstructive and restrictive ventilatory defect. Gas exchange (DLCO) is normal. MTDD
== END 2020-08-21 08:07 | disposition home or self-care (01) ==
PROVIDERS: PCP Family Medicine; Visit Provider Internal Medicine Critical Care Medicine
DX: J44.9 Chronic obstructive pulmonary disease, unspecified (principal)
CPT/HCPCS: 94060; 94726; 94729; J7611

== ENCOUNTER 2022-12-02 15:41 | Outpatient (CLI) | payer OTHER, SELFPAY ==
--- NOTE | 2022-12-02 14:30 | MM_ITS ---
WS: [id number] BILATERAL SCREENING DIGITAL TOMOSYNTHESIS MAMMOGRAM WITH CAD HISTORY: SCREENING COMPARISON: 09/23/2020 Bilateral CC and MLO views with tomosynthesis and synthetic mammography submitted. Computer aided det ection analyzed. Breast composition: There are scattered areas of fibroglandular density. No suspicious masses, microc alcifications or architectural distortion. IMPRESSION: MM/[place] [id number] BI-RADS: 1-Negative FOLLOW UP: 1 Year Follow-up
== END 2022-12-02 15:42 | disposition home or self-care (01) ==
LOC: MOBLMAM 15:51
PROVIDERS: PCP Family Medicine; Visit Provider Family Medicine
DX: Z12.31 Encounter for screening mammogram for malignant neoplasm of breast (principal)
CPT/HCPCS: 77063; 77067

== ENCOUNTER 2024-02-15 08:53 | Outpatient (CLI) | payer OTHER, SELFPAY ==
--- NOTE | 2024-02-15 09:20 | MM_ITS ---
WS: [id number] SCREENING DIGITAL TOMOSYNTHESIS MAMMOGRAM WITH CAD HISTORY: SCREENING COMPARISON: 12/02/2022, 09/23/2020 Bilateral CC and MLO with tomosynthesis views submitted. Synthetic mammography reviewed. Computer aid ed detection analyzed. Breast composition: The breasts are almost entirely fatty. No suspicious masses, microcalcifications or architectural distortion. MM/MM scr BI tomosynthesis [id number] IMPRESSION: BI-RADS: 1 - Negative. FOLLOW UP: 1 Year Follow-up
== END 2024-02-15 08:54 | disposition home or self-care (01) ==
LOC: MOBLMAM 08:55
PROVIDERS: PCP Family Medicine; Visit Provider Family Medicine
DX: Z12.31 Encounter for screening mammogram for malignant neoplasm of breast (principal); R92.313 Mammographic fatty tissue density, bilateral breasts
CPT/HCPCS: 77063; 77067

== ENCOUNTER 2024-12-18 09:55 | Inpatient (IN) | payer MEDICARE, OTHER, SELFPAY ==
[2024-12-18] VITALS (54 sets, daily range): BP systolic 81–144; BP diastolic 42–95; PULSE 84–113; RESP 14–30; TEMP 36.2–36.8; O2SAT 84–99; BMI 17.4; BMI 17.0
--- NOTE | 2024-12-18 09:56 | XR_ITS ---
WS: [id number] Exam: XR chest 1V portable [id number] Date/Time of Exam: 12/18/2024 9:57 AM Reason For Exam: dyspnea/cough No priors. Large masslike density identified in the RIGHT upper lobe with associated infiltrate. There is diffuse airspace consolidative areas in the mid and lower RIGHT lung also. RIGHT basal pleural effusion is noted. The LEFT lung is clear and fully expanded. Heart size is normal. The superior mediastinum is normal in contour. Bony structures are intact. XR/XR chest 1V portable [id number] IMPRESSION: 1. Large masslike density with associated infiltrate in the RIGHT upper lobe. 2. Areas of nodular consolidation identified throughout the mid and lower RIGHT lung and RIGHT basal pleural effusion.
--- NOTE | 2024-12-18 09:58 | W.ED.SOB ---
HPI - SOB/Dyspnea General: Chief Complaint: Shortness of Breath/Dyspnea Stated Complaint: SOB Time Seen by Provider: 12/18/24 09:56 History of Present Illness: HPI Narrative: 64-year-old female presents emergency room complaining of shortness of breath and cough. Patient recently diagnosed with lung cancer has not yet started chemotherapy treatment she is supposed to have what sounds like a PET scan over the weekend but had eaten so was not able to do it. Patient denies any productive cough with no fever sweats or chills. She normally wears 2 L/min on initial presentation to the emergency room she had sats in the upper 70s on 6 L she was able to improved to the mid 80s. Still has some tachypnea. Associated symptoms: Reports chest congestion; Deny abdominal pain, chest pain or fever(s) Related Data Home Medications ?Medication ?Instructions ?Recorded ?Confirmed aspirin 81 mg tablet,delayed 162 mg PO DAILY@0900 10/07/22 12/18/24 release cholecalciferol (vitamin D3) 50 50 mcg PO DAILY 10/07/22 12/18/24 mcg (2,000 unit) capsule magnesium oxide 400 mg PO DAILY 10/07/22 12/18/24 buspirone 10 mg tablet 10 mg PO BID 11/26/24 12/18/24 ondansetron HCl 4 mg tablet 4 mg PO Q4H PRN Nausea 12/18/24 12/18/24 oxycodone 5 mg tablet 5 mg PO Q4H PRN Pain 12/18/24 12/18/24 Previous Rx's ?Medication ?Instructions ?Recorded albuterol sulfate 90 mcg/actuation 2 puff inhalation Q6H PRN 12/12/20 aerosol inhaler shortness of breath or wheezing 30 days #8.5 grams furosemide 20 mg tablet (Lasix) 20 mg PO QAM PRN edema #90 tabs 04/07/21 amoxicillin 875 mg-potassium 1 tab PO BID #14 tabs 12/21/24 clavulanate 125 mg tablet ipratropium 0.5 mg-albuterol 3 mg 3 ml inhalation Q6H PRN Shortness 12/21/24 (2.5 mg base)/3 mL nebulization Of Breath Or Wheezing #90 mL soln potassium chloride 20 mEq 20 meq PO DAILY #14 tabs 12/21/24 tablet,extended release(part/cryst) (Klor-Con M) prednisone 5 mg tablets in a dose See Rx Instructions PO .COMPLEX 12/21/24 pack #21 ea Allergies Allergy/AdvReac Type Severity Reaction Status Date / Time acetaminophen (From Tylenol) AdvReac ALGY-Rash Verified 11/26/24 10:01 Review of Systems Const: Denies: fever(s) or chills Card: Denies: chest pain Resp: Reports: dyspnea, productive cough, wheezing and chest congestion GI: Denies: abdominal pain : Denies: dysuria, urinary frequency or urinary urgency Musc: Denies: neck pain or back pain Skin/Breast: Denies: rash PFSH ED PFSH: Medical History COPD (chronic obstructive pulmonary disease) Anxiety HTN (hypertension) Hyperlipidemia Surgical History H/O: hysterectomy Previous back surgery History of appendectomy Family History Mother Stroke Social History Smoking and tobacco/nicotine status: current every day tobacco/nicotine user Quit status (tobacco/nicotine): has quit using Year quit tobacco: 2020 Former quit date comment: Hx of 1PPD x 44 Years Alcohol intake: former Substance/Drug Use: never Adopted: Yes Lives independently: Yes Household members: none Housing: House Marital status: / Current occupational status: unemployed Do you think of yourself as: Straight/Heterosexual Current gender identity: Female Physical Exam Const: GENERAL APPEARANCE: cooperative ORIENTATION/CONSCIOUSNESS: Yes awake, Yes oriented to person, Yes oriented to place and Yes oriented to time HENMT: COMMON NORMALS: normocephalic, atraumatic and hearing grossly normal bilaterally HEAD & SCALP: normocephalic and atraumatic Resp: EFFORT & INSPECTION: Yes tachypneic and Yes uses accessory muscles AUSCULTATION: rhonchi and wheezes Cardio: COMMON NORMALS: regular rate, regular rhythm and No murmurs present (Cardio) RATE: regular rate RHYTHM: regular rhythm GI: COMMON NORMALS: Soft to palpation and No hepatosplenomegaly present AUSCULTATION: Yes normoactive bowel sounds PALPATION: Yes Soft to palpation, No Tenderness to palpation present (GI), No Guarding due to palpation present (GI) and Yes No hepatosplenomegaly present Extremity: COMMON NORMALS: normal to inspection, capillary refill normal, no clubbing, cyanosis or edema, no calf tenderness and no pedal edema Neuro: SENSORIUM/ORIENTATION: Yes oriented to person, Yes oriented to place and Yes oriented to time Skin: COMMON NORMALS: no rashes or lesions noted GENERAL SKIN EXAM: no rashes or lesions noted Course Vital Signs: Vital signs: Vital Signs Temperature 98.3 F 12/21/24 11:00 Pulse Rate 84 12/21/24 15:06 Respiratory Rate 16 12/21/24 11:00 Blood Pressure 129/67 12/21/24 15:06 Pulse Oximetry 92 12/21/24 15:06 Oxygen Delivery Me thod Nasal Cannula 12/21/24 08:00 Oxygen Flow Rate 2 12/21/24 11:00 Fraction of Inspir ed Oxygen 40 12/19/24 03:38 MDM - SOB/Dyspnea Medical Decision Making Patient presents with sepsis with leukocytosis White count of 32,000 with a left shift. Blood gas shows pCO2 45 and a pO2 of 46. She is on BiPAP at this time her first lactic is 4.4. UA shows 11-20 white blood cells per high-power field. Flu COVID and RSV are negative. Chest x-ray shows no pneumonia likely related to partial obstruction from her lung tumor. Will treat for sepsis antibiotics initiated sepsis fluid bolus given. Discussed with hospitalist orders written. CTA shows tumor in the right upper lobe with pneumonia. No pneumothorax there is lymphangitic spread of the tumor there is no evidence of PE. Incidental notation of cirrhotic appearance of liver Medical Records I reviewed the patient's medical records. Lab Data I reviewed the patient's lab results. 12/20/24 05:09 12/21/24 04:57 Labs/Radiology: Radiology Impressions Chest X-Ray 12/18/24 09:56 IMPRESSION: 1. Large masslike density with associated infiltrate in the RIGHT upper lobe. 2. Areas of nodular consolidation identified throughout the mid and lower RIGHT lung and RIGHT basal pleural effusion. Chest CTA 12/18/24 10:27 IMPRESSION: 1. Large lobulated solid mass centered in the RIGHT upper lobe extending into the hilum and mediastinum and along the fissure. Mass measures 7.4 x 7.3 x 7.3 cm. Highly suspicious for neoplasm. 2. Additional nodules and interstitial stranding in the RIGHT upper lobe highly suspicious for lymphangitic spread of tumor and additional metastatic sites. 3. Peripheral irregular opacifications in the RIGHT upper, middle and lower lobes. Suspect this is additional tumor extension which may be pleural-based. Some of the opacifications may be pneumonia or postobstructive atelectasis. 4. No pulmonary embolism. 5. Severe centrilobular emphysema. 6. Mediastinal and hilar lymphadenopathy. 7. Cirrhotic appearing liver. 8. Neither adrenal gland is well visualized. Laboratory Results WBC 32.98 10^3/uL (3.29-11.43) H* 12/18/24 09:05 RBC 5.14 10^6/uL (3.85-5.65) 12/18/24 09:05 Hgb 14.30 g/dL (11.27-16.99) 12/18/24 09:05 Hct 45.8 % (36-47) 12/18/24 09:05 MCV 89.1 fl (85-98) 12/18/24 09:05 MCH 27.8 pg (27-33) 12/18/24 09:05 MCHC 31.2 g/dL (30-55) 12/18/24 09:05 RDW 14.0 % (12.1-15.1) 12/18/24 09:05 Plt Count 428 10^3/cmm (157-399) H 12/18/24 09:05 MPV 10.9 fL (7.4-10.4) H 12/18/24 09:05 Neut % (Auto) 89.8 % 12/18/24 09:05 Lymph % (Auto) 2.6 % 12/18/24 09:05 Swain % (Auto) 6.7 % 12/18/24 09:05 Eos % (Auto) 0.1 % 12/18/24 09:05 Baso % (Auto) 0.3 % 12/18/24 09:05 Neut # (Auto) 29.59 10^3/uL (1.8-7.7) H 12/18/24 09:05 Lymph # (Auto) 0.9 10^3/uL (0.8-4.8) 12/18/24 09:05 Swain # (Auto) 2.2 10^3/uL (0.2-0.9) H 12/18/24 09:05 Eos # (Auto) 0.0 10^3/uL (0.0-0.8) 12/18/24 09:05 Baso # (Auto) 0.1 10^3/uL (0.0-0.1) 12/18/24 09:05 Nucleated RBC % (auto) 0 % 12/18/24 09:05 Nucleated RBCs # 0.0 /100WBC 12/18/24 09:05 Specimen Type Arterial 12/18/24 10:18 Sample Site Radial, left 12/18/24 10:18 ABG pH 7.41 (7.35-7.45) 12/18/24 10:18 ABG pCO2 45.3 mmHg (35-45) H 12/18/24 10:18 ABG pO2 46.8 mmHg (80.0-100.0) L 12/18/24 10:18 ABG PO2/FiO2 Ratio 106 12/18/24 10:18 ABG HCO3 28.8 mmol/L (22-26) H 12/18/24 10:18 ABG O2 Saturation 83.2 12/18/24 10:18 ABG Base Excess 3.5 mmol/L (-2.0-2.0) H 12/18/24 10:18 Rick Test Pos 12/18/24 10:18 A-a O2 Gradient 27.6 mmHg (5-10) H 12/18/24 10:18 Hematocrit 42.5 % (37-47) 12/18/24 10:18 Hgb O2 Saturation 81.6 % (95-100) L 12/18/24 10:18 Carboxyhemoglobin 1.9 %THgb (0.4-20.1) 12/18/24 10:18 Methemoglobin 0.0 % (0.4-1.5) L 12/18/24 10:18 Total Hemoglobin 13.9 g/dL (12-16) 12/18/24 10:18 Sodium 140.0 mmol/L (131-143) 12/18/24 10:18 Potassium 3.6 mmol/L (3.5-5.0) 12/18/24 10:18 Glucose 158.0 mg/dL (70-115) H 12/18/24 10:18 Ionized Calcium 1.2 mmol/L (1.1-1.4) 12/18/24 10:18 O2 Delivery Device Nc 12/18/24 10:18 O2 Liters/Min 6.0 % 12/18/24 10:18 FiO2 44.0 % 12/18/24 10:18 Tree Care Foreman ID [place] 12/18/24 10:18 Sodium 141 mmol/L (136-145) 12/18/24 09:05 Potassium 3.7 mmol/L (3.5-5.1) 12/18/24 09:05 Chloride 96 mmol/L (98-107) L 12/18/24 09:05 Carbon Dioxide 28 mmol/L (22-29) 12/18/24 09:05 Anion Gap 20.7 (5-19) H 12/18/24 09:05 BUN 18 mg/dL (8-23) 12/18/24 09:05 Creatinine 0.5 mg/dL (0.5-0.9) 12/18/24 09:05 GFR Calculation 124.2 mL/min (90-130) 12/18/24 09:05 Glucose 165 mg/dL (65-115) H 12/18/24 09:05 Calculated Osmolality 298 mOsm/kg (285-295) H 12/18/24 09:05 Lactic Acid 4.4 mmol/L (0.5-2.2) H* 12/18/24 10:38 Calcium 9.7 mg/dL (8.5-10.5) 12/18/24 09:05 Total Bilirubin 0.5 mg/dL (0.15-1.2) 12/18/24 09:05 AST 22 U/L (0-32) 12/18/24 09:05 ALT 15 U/L (0-33) 12/18/24 09:05 Alkaline Phosphatase 162 U/L (35-105) H 12/18/24 09:05 Total Protein 7.4 g/dL (6.6-8.7) 12/18/24 09:05 Albumin 3.6 g/dL (3.5-5.2) 12/18/24 09:05 Globulin 3.8 g/dL (1.3-4.6) 12/18/24 09:05 Urine Color Yellow (Yellow) 12/18/24 10:54 Urine Appearance Cloudy (CLEAR) A 12/18/24 10:54 Urine pH 5.5 (5-7) 12/18/24 10:54 Ur Specific [place] 1.025 (1.005-1.030) 12/18/24 10:54 Urine Protein 2+ (Negative) A 12/18/24 10:54 Urine Glucose (UA) Negative (Normal) 12/18/24 10:54 Urine Ketones Trace (Negative) 12/18/24 10:54 Urine Blood Trace (Negative) A 12/18/24 10:54 Urine Nitrate Negative (Negative) 12/18/24 10:54 Urine Bilirubin Negative (Negative) 12/18/24 10:54 Urine Urobilinogen 1.0 mg/dL (Negative) 12/18/24 10:54 Ur Leukocyte Esterase Negative (Negative) 12/18/24 10:54 Urine RBC 3-5 /hpf (0-2) 12/18/24 10:54 Urine WBC 11-20 /hpf (0-5) H 12/18/24 10:54 Ur Squamous Epith Cells 6-10 /hpf (0-5) 12/18/24 10:54 Amorphous Sediment Not Reportable 12/18/24 10:54 Urine Bacteria None seen /hpf (NONE) 12/18/24 10:54 Hyaline Casts 88.13 /lpf 12/18/24 10:54 Influenza A (PCR) Negative (Negative) 12/18/24 10:35 Influenza Type B (PCR) Negative (Negative) 12/18/24 10:35 RSV (PCR) Negative (Negative) 12/18/24 10:35 SARS-CoV-2 (PCR) Negative (Negative) 12/18/24 10:35 All radiology interpretation(s) finalized by discharge EKG Data EKG 1: Interpretation: EKG 1111 2024-11-08 sinus tachycardia rate 113. [place] 136 QTc [address] changes noted EKG compared to 07/08/2020 rate is increased but otherwise no acute changes. Critical Care Time Critical Care Time: Critical Care Time: Yes Total Critical Care Time: 40 Attestation: The high probability of a clinically significant, sudden or life threatening deterioration of the patient's cardiovascular respiratory system(s) required my full and direct attention, intervention and personal management. The critical care time is as shown. This time is in addition to time spent performing any reported procedures but includes the following: [x] Data and vital sign review and interpretation [x] Patient assessment, examination and intervention [x] Documentation [x] Medication orders and management Discharge Plan Discharge Patient Disposition: Admitted As Inpatient Admit Provider: Martin Barraza Clinical Impression: Acute and chronic respiratory failure with hypoxia, Small cell lung cancer, right upper lobe, Sepsis, Pneumonia, Cystitis Condition: Stable Discharge Diet: Regular Discharge Activity: Increase activity as tolerated Coding Level of Care Code ED Blow Off Worker for Sara Marcum
--- NOTE | 2024-12-18 10:02 | ECG_ITS ---
[facility]: 2024-12-18 Pat Name: Amy Cooper Department: Room: Gender: Female Chalk Cutter: : 1960 Requested By: Chato Reich Order Number: [id number] Jim MD: Ever Norman M.D. Measurements Intervals [place] Rate: 113 P: 77 KS: 136 QRS: 76 QRSD: 90 T: 71 QT: 314 QTc: 432 Interpretive Statements SINUS TACHYCARDIA ABNORMAL RHYTHM ECG Compared to ECG 07/08/2020 14:12:34 no significant change Electronically Signed On 12-19-2024 20:27:21 [employer]APERY HEMMER [employer] by Ever Norman M.D. [email or web address]
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
--- OUTSIDE RECORDS SUMMARY | 2024-12-18 10:02 | XMS_ITS | Encounter Summary ---
Author Organization [facility] Address [address] [place] [address] Care Team Providers Care Insulation Installer Name Role Phone Fred Bethea Primary Care Provider [phone] Reason for Referral * Outpatient Services (Routine) - Closed Specialty Diagnoses / Procedures Referred By Conthaydee t Referred To Contact Radiology Diagnoses Screening mammogram, encounter for Procedures MAMMO SCREEN BILAT W OR WO CAD Fred Bethea FNP Phone: tel: fax: [facility] [place] [address] [facility] [facility] [address] [facility] [place] [address] Phone: tel: fax: Referral ID Status Reason Start Date Expiration Date V isits Requested Visits Authorized [id number] Closed PAN View CTS to Schedule (SGF) 03/29/2016 04/29/2017 1 1 LINE WORKER Encounter Details Date Type Department Care Team (Latest Contact Info) Description 03/29/2016 Ancillary Orders [facility] Centralized Scheduling [address] [facility] [address] [place] [address] Ferd Bethea FNP [id number] [facility] [address] [place] [address] Screening mammogram, encounter for Social History Tobacco Use Types Packs/Day Years Used Date Smoking Tobacco: Never Assessed Comments Unknown Sex and Gender Information Value Date Recorded Sex Assigned at Not on file Legal Sex Female 12:48 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 This examination was reviewed with the aid of a computer-aided detection system(CAD). The breast tissue density is fatty. No significant new findings since the prior mammogram(s). Fred ADKINS MAMMO ORDERABLES Final Result documented in this encounter Visit Diagnoses Diagnosis Screening mammogram, encounter for Screening mammogram, encounter for documented in this encounter Care Teams Insulation Installer Relationship Specialty Start Date End Date Fred Bethea FNP PCP - General NURSE PRACTITIONER 04/08/16 documented as of this encounter
--- OUTSIDE RECORDS SUMMARY | 2024-12-18 10:02 | XMS_ITS | Encounter Summary ---
Author Organization [facility] Address [address] [place] [address] Care Team Providers Care Seam Sewer Name Role Phone Fred Bethea Primary Care Provider [phone] Reason for Referral * Outpatient Services (Routine) - Closed Specialty Diagnoses / Procedures Referred By Scott rodriguez Referred To Contact Radiology Diagnoses Breast cancer screening Procedures MAMMO SCREEN BILAT W OR WO CAD Fred Bethea FNP Phone: tel: fax: [facility] [address] [facility] [address] [place] [address] Phone: tel: fax: Referral ID Status Reason Start Date Expiration Date V isits Requested Visits Authorized [id number] Closed VAN View CTS to Schedule (SGF) 05/05/2017 06/05/2018 1 1 Encounter Details Date Type Department Care Team (Latest Contact Info) Description 05/05/2017 Ancillary Orders [facility] Centralized Scheduling [address] [facility] [address] [place] [address] Fred Bethea FNP [phone] [facility] [address] [place] [address] Breast cancer screening Social History Tobacco Use Types Packs/Day Years Used Date Smoking Tobacco: Never Assessed Comments Unknown Sex and Gender Information Value Date Recorded Sex Assigned at Not on file Legal Sex Female 12:48 PM SCOWMAN Gender Identity Not on file Sexual Orientation Not on file documented as of this encounter Plan of Treatment Not on file documented as of this encounter Results * MAMMO SCREEN BILAT W OR WO CAD (05/10/2017 2:55 PM CDT) Anatomical Region Laterality Modality Breast Bilateral Mammography Narrative 05/12/2017 8:31 AM CDT Bilateral Mammogram Reason for Exam: Screening Comparison: Compared to: 04/08/2016 MAMMO SCREEN BILAT W OR WO CAD, 09/26/2012 MAMMO PRIOR STUDY , 09/25/2012 MAMMO PRIOR STUDY , and 08/14/2011 [...] documented in this encounter Visit Diagnoses Diagnosis Breast cancer screening Breast screening, unspecified Breast cancer screening Breast screening, unspecified documented in this encounter Care Teams Seam Sewer Relationship Specialty Start Date End Date Fred Bethea FNP PCP - General NURSE PRACTITIONER 04/08/16 documented as of this encounter
--- OUTSIDE RECORDS SUMMARY | 2024-12-18 10:02 | XMS_ITS | Encounter Summary ---
Author Organization [facility] Address [address] [place] [address] Care Team Providers Care Yarn Winder Name Role Phone Fred Bethea Primary Care Provider [phone] Encounter Details Date Type Department Care Team (Latest Contact Info) Description 04/29/2017 Ancillary Orders [facility] Pre-Registration [place] CALL TO MAKE APPOINTMENT ONLY [address] [place] [address] Fred Bethea FNP [address] [id number] Encounter for screening mammogram for malignant neoplasm of breast Social History Tobacco Use Types Packs/Day Years Used Date Smoking Tobacco: Never Assessed Comments Unknown Sex and Gender Information Value Date Recorded Sex Assigned at Not on file Legal Sex Female 12:48 PM TEAR DOWN 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
--- OUTSIDE RECORDS SUMMARY | 2024-12-18 10:02 | XMS_ITS | Clinical Summary ---
Author Organization [facility] Address [address] [place] [address] Phone Care Team Providers Care Jukebox Operator Name Role Phone Dedra Ritchie Primary Care Provider [phone] Allergies Active Allergy Reactions Criticality Noted Date Comments Acetaminophen Hives High 01/22/2019 Medications baclofen (LIORESAL) 10 mg tablet Take 10 mg by mouth daily at bedtime. 0 Active omeprazole (PriLOSEC) 40 mg Capsule, Delayed Release(E.C.)Ind ications:Gastroe sophageal reflux disease without esophagitis Take 1 Capsule (40 mg) by mouth daily. 30 Capsule 1 9 Active busPIRone (BUSPAR) 10 mg tablet Take 10 mg by mouth 2 times daily. 0 Active potassium chloride (KLOR-CON) 10 mEq Extended Release tablet Take 1 Tablet by mouth daily. 2 Active hydroCHLOROthiaz rosa 25 mg tablet Take 25 mg by mouth daily. 1 Active albuterol sulfate 90 mcg/Actuation inhaler 1 Active atorvastatin (LIPITOR) 40 mg tablet Take 40 mg by mouth daily. 1 Active buPROPion HCL (WELLBUTRIN XL) 300 mg Extended Release 24 hour tablet Take 300 mg by mouth daily. 1 Active meloxicam (MOBIC) 15 mg tablet Take 15 mg by mouth daily. 1 Active predniSONE (DELTASONE) 10 mg tabletIndication s:COPD with acute exacerbation (CMS/HCC) Take 1 Tablet (10 mg) by mouth daily. 3 tabs daily for 3 days then 2 days then 3 days then 1 daily for 3 days then DC 18 Tablet 2 Active oxygen home deliveryIndicati ons:Chronic respiratory failure with hypoxia and hypercapnia (CMS/HCC) Home Oxygen Concentrator yes at 2 L/M Rest, 2 L/M Activity, 2 L/M Sleep, Delivery Device: Nasal Cannula Portability: yes, 2 L/M Rest, 2 L/M Activity, May provide device best for patient needs(E system,home fill, conserving device) Length of Need: 99 months 1 Each 2 Active nebulizerIndicat ions:Chronic respiratory failure with hypoxia and hypercapnia (CMS/HCC) Length of need 99 months Nebulizer with compressor, Kit: Disposable Nebulizer Kit, 2 per month, filters , areosol mask: Yes. Name of Medication albuterol 1 Each 2 Active albuterol (PROVENTIL,LUKAS SHASHANK) 2.5 mg /3 mL (0.083 %) Solution for NebulizationIndi cations:Chronic respiratory failure with hypoxia and hypercapnia (CMS/HCC) Take 3 mL (2.5 mg) by inhalation every 6 hours as needed for Shortness of Breath or Wheezing. 300 mL 2 Active Active Problems Problem Noted Date Diagnosed Date Cigarette dependence 05/18/2021 Pneumonia of right lower lobe due to infectious organism 05/18/2021 Chronic obstructive pulmonary disease 05/18/2021 Mixed hyperlipidemia 05/18/2021 Generalized anxiety disorder 05/18/2021 Gastroesophageal reflux disease without esophagi tis 05/18/2021 Recurrent major depressive disorder, in full rem ission 05/18/2021 Encounters Date Type Department Care Team Description 11/13/2024 External Device Data ST[facility] ABSTRACTION Provider, Abstract 10/09/2024 External Device Data [facility] ABSTRACTION Provider, Abstract 09/19/2024 1:39 PM CDT - 09/19/2024 11:59 PM CDT Hospital Encounter [facility] [place] [address] [place] [id number] Arnaldo Kasper MD Discharge Disposition: Home or Self Care 09/18/2024 External Device Data ST[facility] ABSTRACTION Provider, Abstract 09/18/2024 External Device Data [facility] ABSTRACTION Provider, Abstract 09/17/2024 1:25 PM CDT - 09/17/2024 11:59 PM CDT Hospital Encounter [facility] [place] [address] [place] [address] Arnaldo Kasper MD Discharge Disposition: Home or Self Care from Last 3 Months Immunizations Immunization Administration Dates Next Due (ADACEL/BOOSTRIX)(10 [...] Tobacco: Every Day Cigarettes Smokeless Tobacco: Never Alcohol Use Standard Drinks/Week Comments Never 0 (1 standard drink = 0.6 oz pur e alcohol) Comments No Sex and Gender Information Value Date Recorded Sex Assigned at Not on file 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 Gender Identity Not on file Sexual Orientation Not on file Last Filed Vital Signs Vital Sign Reading Time Taken Comments Blood Pressure 120/62 05/19/2021 9:13 AM CDT Pulse 94 05/19/2021 9:13 AM CDT Temperature 36.6 C (97.8 F) 05/19/2021 9:13 AM CDT Respiratory Rate 20 09/30/2019 3:35 PM CDT Oxygen Saturation 91% 05/19/2021 9:13 AM CDT Inhaled Oxygen Concentration - - Weight 75.9 kg (167 lb 6 oz) 05/19/2021 9:13 AM CDT Height 170.2 cm (5' 7 ) 05/19/2021 9:13 AM CDT s tated Body Mass Index 26.21 05/19/2021 9:13 AM CDT Plan of Treatment Health Maintenance Due Date Last Done Comments HPV/Cotest (21-29) 01/06/1981 CERVICAL CANCER SCREENING 01/06/1990 HPV/Cotest (30-65) 01/06/1990 PAP SMEAR 01/06/1990 COLORECTAL SCREENING 01/06/2005 Colorectal Cancer Screening 01/06/2005 FIT-DNA Q 3 years 01/06/2005 FIT/FOBT Q 1 year 01/06/2005 Flex Sig/CT Colonography Q 5 years 01/06/2005 RSV VACCINE (60+ or ) (1 - Risk 50-74 years 1-dose series) 01/06/2010 ZOSTER VACCINE (1 of 2) 01/06/2010 BREAST CANCER SCREENING 09/23/2021 09/24/19 21, 07/03/2019, 07/03/2019, Additional history exists INFLUENZA VACCINE (#1) 2024 COVID-19 Vaccine (4 - 2024-2 6 season) 2024 12/04/2020, 05/06/2020, 04/03/2020 DTAP/TDAP/TD VACCINES (2 - T d or Tdap) 09/29/2029 09/30/2019 Procedures Procedure Name Priority Date/Time Associated Diagnosis Comments PULMONARY FUNCTION TEST Routine 09/20/2024 9:30 AM CDT Hypoxic encephalopathy (CMS/HCC) Chronic obstructive pulmonary disease, unspecified COPD type (CMS/HCC) ECHO COMPLETE Routine 09/17/2024 2:39 PM CDT At risk for impaired cardiac function Chronic obstructive pulmonary disease, unspecified COPD type (CMS/HCC) MAMMO SCREEN BILAT W OR WO CAD Routine 09/23/2020 4:09 PM CDT Encounter for screening for malignant neoplasm of breast, unspecified screening modality from Last 3 Months or Most Recently Relevant to Health Maintenance Results * PULMONARY FUNCTION TEST (09/20/2024 9:30 AM CDT) Impressions Carmen Varma MD - 09/20/2024 9:30 AM CDT Spirometry shows moderate obstruction based on z-scores. There is no significant bronchodilator response. The lack of bronchodilator response doesn't preclude a clinical response to bronchodilator therapy. Lung volumes show air trapping. Diffusing capacity shows moderate decrease. Carmen Funes MD, 09/20/2024 9:30 AM us Arnaldo Kasper MD PFT ORDERABLES Final Resul t * ECHO COMPLETE - CONTRAST AND STRAIN IF INDICATED (09/17/2024 2:39 PM CDT) EJECTION FRACTION 60 INTERFACE SYSTEM 09/17/2024 2:08 PM CDT Narrative INTERFACE SYSTEM - 09/18/2024 8:48 AM CDT [facility] Radiology Services - Echocardiology [address] [facility] [address] [place] [address] Transthoracic Echocardiography Patient: Shantell Thomas Study ID: [id number] Gender: F : 1960 Age: 64 Room: [facility] Study Date: 09/17/2024 Pt Status: Study Time: 02:08:18 PM CSN #: [id number] Ordering:Arnaldo Kasper Cyber Security Engineer: Kayley Lucas Indications and History: At risk for impaired cardiac function [Z91.89 (ICD-10-CM)]; Chronic obstructive pulmonary disease, unspecified COPD type (CMS/HCC) [J44.9 (ICD-10-CM)] Summary and Conclusion: - Left ventricle: Not well visualized. The cavity size is normal. Wall thickness is normal. Global systolic function is normal. For Epic reporting: the left ventricular ejection fraction is 60% by visual assessment. Images are inadequate for LV wall motion assessment. Interventricular septum shows dyssynergy, consistent with previous thoracotomy, conduction delay or RV pacing. Diastolic function is indeterminate. - Right ventricle: Not well visualized. The cavity size is normal. Systolic function is difficult to assess and probably normal. The estimated peak pressure is 42mm Hg. - Aortic valve: Not well visualized. The leaflets are thickened and calcified. There is mild to moderate stenosis based on gradients. There is mild regurgitation. The mean systolic gradient is 19mm Hg. - Mitral valve: There is mild regurgitation. - Tricuspid valve: Not well visualized. - Pulmonic valve: Not well visualized. Impressions: Technically very difficult images. Procedure information: Study status: Routine. Procedure: A transthoracic echocardiogram was performed. Image quality was suboptimal. Scanning was performed from the parasternal, apical, subcostal, and suprasternal notch acoustic windows. Study components: M-mode, 2D, complete spectral Doppler, and color Doppler. Height: 170.2cm. Height: 67in. Weight: 75.9kg. Weight: 167.3lb. BMI: 26.2kg/m^2. BSA: 1.91m^2. Study date: 09/17/2024. Study time: 02:08 PM. Cardiac Anatomy: LEFT VENTRICLE: Not well visualized. The cavity size is normal. Wall thickness is normal. Global systolic function is normal. For Epic reporting: the left ventricular ejection fraction is 60% by visual assessment. Images are inadequate for LV wall motion assessment. Interventricular septum shows dyssynergy, consistent with previous thoracotomy, conduction delay or RV pacing. Diastolic function is indeterminate. RIGHT VENTRICLE: Not well visualized. The cavity size is normal. Systolic function is difficult to assess and probably normal. The estimated peak pressure is 42mm Hg. LEFT ATRIUM: The atrium is normal in size. RIGHT ATRIUM: The atrium is normal in size. ATRIAL SEPTUM: Not well visualized. AORTIC VALVE: Not well visualized. The leaflets are thickened and calcified. There is mild to moderate stenosis based on gradients. There is mild regurgitation. MITRAL VALVE: Not well visualized. No evidence for prolapse. There is mild regurgitation. TRICUSPID VALVE: Not well visualized. Mobility is unrestricted. There is no evidence for stenosis. There is trivial regurgitation. PULMONIC VALVE: Not well visualized. PERICARDIUM: There is no pericardial effusion. AORTA: Aortic root: The root is poorly visualized and not dilated. Measurements Left ventricle Value Aortic valve Value FS, LAX 36 % Peak v, S 195 cm/sec FS 36 % Mean v, S 207 cm/sec EDV 93 ml VTI, S 59.1 cm ESV 32 ml Mean grad, S 19 mm Hg EF 66 % Peak grad, S 15 mm Hg EDV/bsa 49 ml/m^2 PHT 592 ms ESV/bsa 17 ml/m^2 EF, 1-p A2C 62 % Mitral valve Value EF, 1-p A4C 63 % Peak E/A ratio 0.75 EDV, 2-p 76 ml Peak LV-LA grad S 100 mm Hg ESV, 2-p 28 ml EF, 2-p 63 % Tricuspid valve Value EDV/bsa, 2-p 40 ml/m^2 TR peak v 264 cm/sec ESV/bsa, 2-p 15 ml/m^2 Peak RV-RA grad, S 28 mm Hg EDV, MM Teich. 93 ml EF, MM Teich. 66 % Descending aorta Value EDV/bsa, MM Teich. 49 ml/m^2 Prox Joey diam 1.5 cm EF, MM on 2D Teich. 66 % E/e', lat jacobo, TDI 7 Inferior vena cava Value E/e', med jacobo, TDI 9 Prox diam, exp 1.5 cm E/e', avg, TDI 8 Left atrium Value Vol, S 37 ml Vol/bsa, S 20 ml/m^2 Legend: (L) and (H) jojo values outside specified reference range. Prepared and Electronically Authenticated Joo Carrillo MD Confirmed 09/18/2024 08:48 Procedure Note Joo Carrillo MD - 09/18/2024 [facility] Radiology Services - Echocardiology [address] [place] [id number] Transthoracic Echocardiography Patient: Shantell Thomas Study ID:[id number] Gender: F : 1960 Age: 64 Room: [facility] Study Date: 09/17/2024 Pt Status: Study Time: 02:08:18 PM CSN #: [id number] Ordering:Arnaldo Kasper Cyber Security Engineer: Kayley Lucas Indications and History: At risk for impaired cardiac function [Z91.89 (ICD-10-CM)]; Chronic obstructive pulmonary disease, unspecified COPDtype ([facility]/HCC) [J44.9 (ICD-10-CM)] Summary and Conclusion: - Left ventricle: Not well visualized. The cavity size is normal. Wall thickness is normal. Global systolic function is normal. For Epicreporting: the left ventricular ejection fraction is 60% by visual assessment.Images are inadequate for LV wall motion assessment. Interventricular septumshows dyssynergy, consistent with previous thoracotomy, conduction delay orRV pacing. Diastolic function is indeterminate. - Right ventricle: Not well visualized. The cavity size is normal.Systolic function is difficult to assess and probably normal. The estimatedpeak pressure is 42mm Hg. - Aortic valve: Not well visualized. The leaflets are thickened andcalcified. There is mild to moderate stenosis based on gradients. There is mild regurgitation. The mean systolic gradient is 19mm Hg. - Mitral valve: There is mild regurgitation. - Tricuspid valve: Not well visualized. - Pulmonic valve: Not well visualized. Impressions: Technically very difficult images. Procedure information: Study status: Routine. Procedure: Atransthoracic echocardiogram was performed. Image quality was suboptimal. Scanning was performed from the parasternal, apical, subcostal, and suprasternalnotch acoustic windows. Study components: M-mode, 2D, completespectral Doppler, and color Doppler. Height: 170.2cm. Height: 67in. Weight: 75.9kg. Weight: 167.3lb. BMI: 26.2kg/m^2. BSA: 1.91m^2. Studydate: 09/17/2024. Study time: 02:08 PM. Cardiac Anatomy: LEFT VENTRICLE: Not well visualized. The cavity size is normal. Wall thickness is normal. Global systolic function is normal. For Epicreporting: the left ventricular ejection fraction is 60% by visual assessment. Imagesare inadequate for LV wall motion assessment. Interventricular septum shows dyssynergy, consistent with previous thoracotomy, conduction delay or RV pacing. Diastolic function is indeterminate. RIGHT VENTRICLE: Not well visualized. The cavity size is normal.Systolic function is difficult to assess and probably normal. The estimated peak pressure is 42mm Hg. LEFT ATRIUM: The atrium is normal in size. RIGHT ATRIUM: The atrium is normal in size. ATRIAL SEPTUM: Not well visualized. AORTIC VALVE: Not well visualized. The leaflets are thickened andcalcified. There is mild to moderate stenosis based on gradients. There is mild regurgitation. MITRAL VALVE: Not well visualized. No evidence for prolapse. There ismild regurgitation. TRICUSPID VALVE: Not well visualized. Mobility is unrestricted. There isno evidence for stenosis. There is trivial regurgitation. PULMONIC VALVE: Not well visualized. PERICARDIUM: There is no pericardial effusion. AORTA: Aortic root: The root is poorly visualized and not dilated. Measurements Left ventricle Value Aortic valve Value FS, LAX 36 % Peak v, S 195 cm/sec FS 36 % Mean v, S 207 cm/sec EDV 93 ml VTI, S 59.1 cm ESV 32 ml Mean grad, S 19 mm Hg EF 66 % Peak grad, S 15 mm Hg EDV/bsa 49 ml/m^2 PHT 592 ms ESV/bsa 17 ml/m^2 EF, 1-p A2C 62 % Mitral valve Value EF, 1-p A4C 63 % Peak E/A ratio 0.75 EDV, 2-p 76 ml Peak LV-LA grad S 100 mm Hg ESV, 2-p 28 ml EF, 2-p 63 % Tricuspid valve Value EDV/bsa, 2-p 40 ml/m^2 TR peak v 264 cm/sec ESV/bsa, 2-p 15 ml/m^2 Peak RV-RA grad, S 28 mm Hg EDV, MM Teich. 93 ml EF, MM Teich. 66 % Descending aorta Value EDV/bsa, MM Teich. 49 ml/m^2 Prox Joey diam 1.5 cm EF, MM on 2D Teich. 66 % E/e', lat jacobo, TDI 7 Inferior vena cava Value E/e', med jacobo, TDI 9 Prox diam, exp 1.5 cm E/e', avg, TDI 8 Left atrium Value Vol, S 37 ml Vol/bsa, S 20 ml/m^2 Legend: (L) and (H) jojo values outside specified reference range. Prepared and Electronically Authenticated Joo Carrillo MD Confirmed 09/18/2024 08:48 us Arnaldo Kasper MD US ORDERABLES Final Resul t INTERFACE SYSTEM Refer to clinic/hospital department * MAMMO SCREEN BILAT W OR WO CAD (09/23/2020 4:09 PM CDT) Anatomical Region Laterality Modality Breast Bilateral Mammography Narrative 09/27/2020 10:41 AM CDT Bilateral Mammogram Reason for Exam: Screening Comparison: Compared to: 07/03/2019 MAMMO SCREEN BILAT W OR WO CAD Findings: Bilateral CC and MLO views were [...] follow-up Overall Assessment: Birads Category 1: Negative us Arnaldo Kasper MD MAMMO ORDERABLES Final Resu lt from Last 3 Months or Most Recently Relevant to Health Maintenance [place] [address] Care Teams Jukebox Operator Relationship Specialty Start Date End Date Dedra Ritchie DO [address] [place] [address] PCP - General Family Practice 06/23/21
--- OUTSIDE RECORDS SUMMARY | 2024-12-18 10:02 | XMS_ITS | Encounter Summary ---
Author Organization [facility] Address [address] [place] [address] Care Team Providers Care Inventory Specialist Manager Name Role Phone [place] Fred Rachana WEB ART DIRECTOR Primary Care Provider [phone] Reason for Referral * Radiology Services (Routine) - Closed Specialty Diagnoses / Procedures Referred By Contac t Referred To Contact Radiology Diagnoses Encounter for screening mammogram for malignant neoplasm of breast Procedures MAMMO SCREEN BILAT W OR WO CAD Arnaldo Kasper MD [address] [address] Phone: tel: fax: [facility] [address] [facility] [address] [place] [address] Phone: tel: fax: Referral ID Status Reason Start Date Expiration Date Visits Re quested Visits Authorized [id number] Closed 05/29/2019 06/28/2020 1 1 Encounter Details Date Type Department Care Team (Latest Contact Info) Description 05/29/2019 Ancillary Orders [facility] [address] [facility] [address] [place] [address] Arnaldo Kasper MD [address] [place] [address] Encounter for screening mammogram for malignant neoplasm of breast Social History Tobacco Use Types Packs/Day Years Used Date Smoking Tobacco: Every Day Cigarettes Smokeless Tobacco: Never Alcohol Use Standard Drinks/Week Comments Never 0 (1 standard drink = 0.6 oz pur e alcohol) Comments No Sex and Gender Information Value Date Recorded Sex Assigned at Not on file 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
--- OUTSIDE RECORDS SUMMARY | 2024-12-18 10:02 | XMS_ITS | Encounter Summary ---
Author Organization [facility] Address [address] [place] [address] Care Team Providers Care Roving Weight Gauger Name Role Phone [facility] Primary Care Provider [phone] Reason for Referral * Radiology Services (Routine) - Closed Specialty Diagnoses / Procedures Referred By Contac t Referred To Contact Radiology Diagnoses Bilateral carotid bruits Tobacco use Procedures US CAROTID DOPPLER Arnaldo Kasper MD [address] [address] Phone: tel: fax: [facility] [address] [facility] [address] [place] [address] Phone: tel: fax: Referral ID Status Reason Start Date Expiration Date V isits Requested Visits Authorized [id number] Closed [facility] View CTS to Schedule (SGF) 07/23/2019 01/19/2020 1 1 Encounter Details Date Type Department Care Team (Latest Contact Info) Description 07/25/2019 Ancillary Orders [facility] Scheduling [address] [facility] [address] [place] [address] Arnaldo Kasper MD [address] [address] Bilateral carotid bruits; Tobacco use Social History Tobacco Use Types Packs/Day Years Used Date Smoking Tobacco: Every Day Cigarettes Smokeless Tobacco: Never Alcohol Use Standard Drinks/Week Comments Never 0 (1 standard drink = 0.6 oz pur e alcohol) Comments No Sex and Gender Information Value Date Recorded Sex Assigned at Not on file 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 No / Unsure 07/27/2019 11:03 AM CDT documented as of this encounter Plan of Treatment Not on file documented as of this encounter Results * US CAROTID DOPPLER (08/07/2019 11:42 AM CDT) Anatomical Region Laterality Modality Neck Ultrasound 08/07/2019 11:0 8 AM CDT Narrative 08/16/2019 8:32 PM CDT [facility] Radiology Services - Noninvasive Vascular [address] [address] Noninvasive Vascular Lab Cerebrovascular Exam Carotid Duplex Patient: Amy Cooper Study ID: US CAROTID DOPPL Gender: F : 1960 Age: 59 Room: Height: 168cm Weight: 80.3kg BSA: 1.96m\S\2 Pt status: Outpatient Study Date: 08/07/2019 Study Time: 11:08:03 AM BSA: 1.96m\S\2 Ordering: Arnaldo Kasper Interpreting:Leif Coon MD, RPVI Graphic Design Manager: Edie Delgado History: Dizziness. A bruitof the left carotid artery. A bruitof the right carotid artery. Headaches. Risk factors: Current tobacco use. Summary Impression: 1. Mild atherosclerosis involving the right internal carotid artery and the left internal carotid artery. 2. No evidence of significant stenosis. No prior study available for comparison. Study data: Carotid duplex study. Complete study and Doppler flow study including spectral analysis, color and adkins scale imaging. Ethnicity: Ethnicity: white. Height: 168cm. Height: 66.1in. Weight: 80.3kg. Weight: 176.6lb. BMI: 28.4kg/m\S\2. BSA: 1.96m\S\2. Location: Vascular laboratory. Patient status: Outpatient. Study status: Routine. Procedure: A vascular evaluation was performed. Image quality was good. Arterial flow: - Right CCA - proximal - 0.68m/sec 0.07m/sec - Right CCA - mid - 0.73m/sec 0.15m/sec - Right CCA - distal - 0.7m/sec 0.18m/sec - Right carotid bifurcation - 0.83m/sec 0.17m/sec - Right ECA - 1.23m/sec -0.16m/sec - Right ICA - proximal - -1.03m/sec -0.26m/sec - Right ICA - mid - -1.12m/sec -0.29m/sec - Right ICA - distal - -0.95m/sec -0.26m/sec - Right vertebral - -0.47m/sec -0.07m/sec - Right subclavian - 1.65m/sec 0m/sec - Left CCA - proximal - 1.17m/sec 0.13m/sec - Left CCA - mid - 0.75m/sec 0.19m/sec - Left CCA - distal - 0.82m/sec 0.19m/sec - Left carotid bifurcation - 0.69m/sec 0.19m/sec - Left ECA - -1.24m/sec -0.19m/sec - Left ICA - proximal - -0.95m/sec -0.21m/sec - Left ICA - mid - -0.86m/sec -0.27m/sec - Left ICA - distal - -0.81m/sec -0.26m/sec - Left vertebral - -0.44m/sec -0.09m/sec - Left subclavian - 1.23m/sec 0m/sec Prepared and Electronically Authenticated Leif Coon MD, RPVI Confirmed 08/16/2019 20:31 Procedure Note Leif Coon MD - 08/16/2019 [facility] Radiology Services - Noninvasive Vascular [address] [address] Noninvasive Vascular Lab Cerebrovascular Exam Carotid Duplex Patient: Amy Cooper Study ID: US CAROTID DOPPL Gender: F : 1960 Age: 59 Room: Height: 168cm Weight: 80.3kg BSA: 1.96m\S\2 Pt status: Outpatient Study Date: 08/07/2019 Study Time: 11:08:03 AM BSA: 1.96m\S\2 Ordering: Arnaldo Kasper Interpreting:Leif Coon MD, RPVI Graphic Design Manager: Edie Delgado History: Dizziness. A bruitof the left carotid artery. A bruitof the right carotid artery. Headaches. Risk factors: Current tobacco use. Summary Impression: 1. Mild atherosclerosis involving the right internal carotid artery and the left internal carotid artery. 2. No evidence of significant stenosis. No prior study available for comparison. Study data: Carotid duplex study. Complete study and Doppler flow study including spectral analysis, color and adkins scale imaging. Ethnicity: Ethnicity: white. Height: 168cm. Height: 66.1in. Weight: 80.3kg. Weight: 176.6lb. BMI: 28.4kg/m\S\2. BSA: 1.96m\S\2. Location: Vascular laboratory. Patient status: Outpatient. Study status: Routine. Procedure: A vascular evaluation was performed. Image quality was good. Arterial flow: - Right CCA - proximal - 0.68m/sec 0.07m/sec - Right CCA - mid - 0.73m/sec 0.15m/sec - Right CCA - distal - 0.7m/sec 0.18m/sec - Right carotid bifurcation - 0.83m/sec 0.17m/sec - Right ECA - 1.23m/sec -0.16m/sec - Right ICA - proximal - -1.03m/sec -0.26m/sec - Right ICA - mid - -1.12m/sec -0.29m/sec - Right ICA - distal - -0.95m/sec -0.26m/sec - Right vertebral - -0.47m/sec -0.07m/sec - Right subclavian - 1.65m/sec 0m/sec - Left CCA - proximal - 1.17m/sec 0.13m/sec - Left CCA - mid - 0.75m/sec 0.19m/sec - Left CCA - distal - 0.82m/sec 0.19m/sec - Left carotid bifurcation - 0.69m/sec 0.19m/sec - Left ECA - -1.24m/sec -0.19m/sec - Left ICA - proximal - -0.95m/sec -0.21m/sec - Left ICA - mid - -0.86m/sec -0.27m/sec - Left ICA - distal - -0.81m/sec -0.26m/sec - Left vertebral - -0.44m/sec -0.09m/sec - Left subclavian - 1.23m/sec 0m/sec Prepared and Electronically Authenticated Leif Coon MD, RPVI Confirmed 08/16/2019 20:31 us Arnaldo Kasper MD ORDERABLES Final Resul t documented in this encounter Visit Diagnoses Diagnosis Bilateral carotid bruits Tobacco use Tobacco use disorder Bilateral carotid bruits Tobacco use Tobacco use disorder documented in this encounter Care Teams Roving Weight Gauger Relationship Specialty Start Date End Date Fred Bethea FNP PCP - General NURSE PRACTITIONER 04/08/16 documented as of this encounter
--- OUTSIDE RECORDS SUMMARY | 2024-12-18 10:02 | XMS_ITS | Encounter Summary ---
Author Organization [facility] Address [address] [place] [address] Care Team Providers Care Carbon Cleaner Name Role Phone Fred Bethea Primary Care Provider [phone] Encounter Details Date Type Department Care Team (Late st Contact Info) Description 05/10/2017 Ancillary Orders [facility] [address] [facility] [address] [place] [address] Fred Bethea, HRIS ADMINISTRATOR [address] [address] Breast cancer screening Social History Tobacco Use Types Packs/Day Years Used Date Smoking Tobacco: Never Assessed Comments No Sex and Gender Information Value Date Recorded Sex Assigned at Not on file 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 [facility] ORDERABLES Final Result * MAMMO PRIOR STUDY (09/25/2012 7:30 AM CDT) Narrative 05/10/2017 7:29 AM CDT This exam was auto finalized to allow images to be scanned to PACS. [facility] ORDERABLES Final Result * MAMMO PRIOR STUDY (08/14/2011 7:30 AM CDT) Narrative 05/10/2017 7:30 AM CDT This exam was auto finalized to allow images to be scanned to PACS. [facility] ORDERABLES Final Result documented in this encounter Visit Diagnoses Diagnosis Breast cancer screening Breast screening, unspecified Breast cancer screening Breast screening, unspecified Breast cancer screening Breast screening, unspecified Breast cancer screening Breast screening, unspecified documented in this encounter Care Teams Carbon Cleaner Relationship Specialty Start Date End Date Fred Bethea FNP PCP - General NURSE PRACTITIONER 04/08/16 documented as of this encounter
[2024-12-18 10:07] LABS: Hematocrit 45.8 % (36-47); Hemoglobin 14.30 g/dL (11.27-16.99); Mean Corpuscular HGB Conc 31.2 g/dL (30-55); Mean Corpuscular Hemoglobin 27.8 pg (27-33); Mean Corpuscular Volume 89.1 fl (85-98); Nucleated Red Blood Cells % 0 %; Platelet Count 428 10^3/cmm (157-399); Red Blood Count 5.14 10^6/uL (3.85-5.65)
[2024-12-18 10:20] LABS: White Blood Count 32.98 10^3/uL (3.29-11.43)
--- NOTE | 2024-12-18 10:27 | CT_ITS ---
WS: [id number] CT CHEST ANGIOGRAPHY WITH REFORMATS HISTORY: Hypoxia tachycardia lung cancer TECHNIQUE: Contiguous axial images are obtained through the chest during arterial injection of intravenous contrast. Images are reconstructed to evaluate the pulmonary arteries. MIP imaging also reviewed. All CT scans at [facility] use at least one of these dose optimization techniques: automated exposure control; mA and/or kV adjustment per patient size (includes targeted exams where dose is matched to clinical indication); or iterative reconstruction. CONTRAST: Omnipaque 350; 100 mL IV. DLP: 225.69 mGy.cm COMPARISON: 07/06/2020 Good opacification of the pulmonary arteries. No central pulmonary embolism. No pulmonary embolism is identified. Moderate atherosclerosis aorta. No RIGHT heart strain. Lungs are markedly hyperinflated. There is a large mass centered in the RIGHT upper lobe extending to the hilum. Lobulated mass measures 7.4 x 7.3 x 7.3 cm. Mass is encasing the RIGHT bronchovascular structures and occluding the RIGHT upper lobe bronchus. Mass extends into the RIGHT hilum abutting the mediastinum. Additional multifocal areas of interstitial thickening and stranding surrounding the mass and a few additional peripheral nodules suggesting lymphangitic spread of tumor. There is extensive pleural thickening and irregular areas of consolidation in the periphery of the RIGHT lung involving the RIGHT upper, middle and lower lobes. Bilateral lower lobe tree-in-bud airspace disease and scattered opacifications. Much greater involvement on the RIGHT. No significant pleural effusions. Mediastinal and hilar lymphadenopathy. AP window lymph node 1.7 cm. Paratracheal lymph nodes are identified. High RIGHT paratracheal lymph node 1.2 cm. Increased subcarinal lymphoid tissue. Tricuspid regurgitation into the hepatic veins. There is a small amount of ascites adjacent to the liver. Cirrhotic appearing liver. Mild increase in thoracic kyphosis. No destructive bone lesions identified. CT/CT angio chest PE protcl [id number] IMPRESSION: 1. Large lobulated solid mass centered in the RIGHT upper lobe extending into the hilum and mediastinum and along the fissure. Mass measures 7.4 x 7.3 x 7.3 cm. Highly suspicious for neoplasm. 2. Additional nodules and interstitial stranding in the RIGHT upper lobe highl y suspicious for lymphangitic spread of tumor and additional metastatic sites. 3. Peripheral irregular opacifications in the RIGHT upper, middle and lower lo bes. Suspect this is additional tumor extension which may be pleural-based. Dino e of the opacifications may be pneumonia or postobstructive atelectasis. 4. No pulmonary embolism. 5. Severe centrilobular emphysema. 6. Mediastinal and hilar lymphadenopathy. 7. Cirrhotic appearing liver. 8. Neither adrenal gland is well visualized.
[2024-12-18 10:28] LABS: Alanine Aminotransferase 15 U/L (0-33); Albumin Level 3.6 g/dL (3.5-5.2); Alkaline Phosphatase 162 U/L (35-105); Anion Gap 20.7 (5-19); Aspartate Amino Transferase 22 U/L (0-32); Blood Urea Nitrogen 18 mg/dL (8-23); Calcium 9.7 mg/dL (8.5-10.5); Carbon Dioxide 28 mmol/L (22-29); Chloride 96 mmol/L (98-107); Globulin 3.8 g/dL (1.3-4.6); Glucose 165 mg/dL (65-115); Osmolality Calculated 298 mOsm/kg (285-295); Potassium 3.7 mmol/L (3.5-5.1); Sodium 141 mmol/L (136-145); Total Protein 7.4 g/dL (6.6-8.7)
[2024-12-18 10:30] LABS: ABG PCO2 45.3 mmHg (35-45); ABG PH Result 7.41 (7.35-7.45); Arterial Blood Gas Hematocrit 42.5 % (37-47); Blood Gas Allen Test Pos; Blood Gas Sample Type Arterial; Carboxyhemoglobin 1.9 %THgb (0.4-20.1); Glucose Level-ABG 158.0 mg/dL (70-115); HCO3 ABG 28.8 mmol/L (22-26); Ionized Calcium Level - ABG 1.2 mmol/L (1.1-1.4); Methemoglobin 0.0 % (0.4-1.5); Oxygen Saturation ABG 83.2; PO2 ABG 46.8 mmHg (80.0-100.0); Potassium Level - ABG 3.6 mmol/L (3.5-5.0); Sodium Level - ABG 140.0 mmol/L (131-143)
[2024-12-18 10:31] LABS: Alveolar-Arterial Oxygen Gradi 27.6 mmHg (5-10); Blood Gas LPM 6.0 %; Blood Gas Operator Identificat MONRO; Blood Gas Sample Site Radial, left; PO2 FiO2 Ratio Arterial Blood 106
[2024-12-18] MEDS: methylPREDNISolone sod succ 125 mg/2 mL INJ IVP (10:33)
[2024-12-18] MEDS: SODIUM CHLORIDE 0.9% 1469.64 ML IV (10:52)
[2024-12-18] MEDS: cefTRIAXone 1,000 mg SDV 1000 MG IVP (10:52)
[2024-12-18] MEDS: LORazepam 2 mg/mL INJ 1 mL 0.5 MG IVP (10:52)
[2024-12-18 11:01] LABS: Glucose Urine UA Negative (Normal); Nitrate Urine Negative (Negative); Specific Gravity, Urine 1.025 (1.005-1.030)
[2024-12-18 11:06] LABS: Lactic Sepsis W/Reflex 4.4 mmol/L (0.5-2.2)
[2024-12-18 11:07] LABS: Add Urine Microscopic? YES
[2024-12-18] MEDS: iohexol 350 mg/mL 500 mL Btl (per mL) IV (11:23)
[2024-12-18 11:27] LABS: UA Slide Review UA Slide Review Perf
[2024-12-18 11:36] LABS: Respiratory Syncytial Virus Ce NEGATIVE (Negative); SARS-CoV-2 PCR NEGATIVE (Negative)
[2024-12-18 12:57] LABS: Reflex Lactate Order REFLEX LACTIC ORDERD
--- NOTE | 2024-12-18 12:59 | PM.HP ---
Providers/Chief Complaint Admitting Physician: Martin Barraza MD Primary Care Provider: Linus Kasper Chief Complaint: SOB History of Present Illness Amy Cooper is a 64 year old female who presented to the ER this morning with reports of difficulty breathing and cough. Symptoms have been going on for the past few weeks. No known provoking factor. Patient was reported to have gotten worse in the last few days, therefore prompting her to agree to finally be brought to the ER. Upon arrival, she was found to be quite dyspneic, with oxygen saturation in the 70s. At the ER, she was very tachypneic and tachycardic, with nasal cannula oxygen supplementation unable to get her saturation above 90%. Consequently, she was put on BiPAP. Patient reported to have been recently discharged from the [facility] about a month ago, where she was diagnosed of some right lung mass suspected to be cancer. She has however not been able to follow-up with oncology for further evaluation and treatment. At the time of seeing patient, she was sleepy, and currently on BiPAP. The bulk information above is provided by the very close friend , who was by the bedside, as well as the ER physician. Review of Systems Narrative: Otherwise unable to obtain due to altered mental status. Medications/Allergies Home Medications ?Medication ?Instructions ?Recorded ?Confirmed ?Last Taken ?Type albuterol sulfate 90 mcg/actuation 2 puff inhalation Q6H PRN 12/12/20 12/18/24 Unknown Rx aerosol inhaler shortness of breath or wheezing 30 days #8.5 grams furosemide 20 mg tablet (Lasix) 20 mg PO QAM PRN edema #90 tabs 04/07/21 12/18/24 Unknown Rx aspirin 81 mg tablet,delayed 162 mg PO DAILY@0900 10/07/22 12/18/24 12/17/24 History release cholecalciferol (vitamin D3) 50 50 mcg PO DAILY 10/07/22 12/18/24 Unknown History mcg (2,000 unit) capsule magnesium oxide 400 mg PO DAILY 10/07/22 12/18/24 12/17/24 History buspirone 10 mg tablet 10 mg PO BID 11/26/24 12/18/24 12/17/24 History ondansetron HCl 4 mg tablet 4 mg PO Q4H PRN Nausea 12/18/24 12/18/24 Unknown History oxycodone 5 mg tablet 5 mg PO Q4H PRN Pain 12/18/24 12/18/24 Unknown History Allergies Allergy/AdvReac Type Severity Reaction Status Date / Time acetaminophen (From Tylenol) AdvReac ALGY-Rash Verified 11/26/24 10:01 PFSH Acute PFSH: Medical History COPD (chronic obstructive pulmonary disease) Anxiety HTN (hypertension) Hyperlipidemia Surgical History H/O: hysterectomy Previous back surgery History of appendectomy Family History Mother Stroke Social History Smoking and tobacco/nicotine status: current every day tobacco/nicotine user Quit status (tobacco/nicotine): has quit using Year quit tobacco: 2020 Former quit date comment: Hx of 1PPD x 44 Years Alcohol intake: former Substance/Drug Use: never Adopted: Yes Lives independently: Yes Household members: none Housing: House Marital status: / Current occupational status: unemployed Do you think of yourself as: Straight/Heterosexual Current gender identity: Female Vitals/I&O/Wt Last Vital Signs Temp 98.3 F 12/18/24 09:57 Pulse 102 H 12/18/24 12:56 Resp 16 12/18/24 12:56 BP 98/66 12/18/24 12:56 Pulse Ox 95 12/18/24 12:56 O2 Del Method Room Air 12/18/24 12:56 O2 Flow Rate 5 12/18/24 10:10 FiO2 60 12/18/24 10:50 12/17/24 12/18/24 12/18/24 22:59 06:59 14:59 Intake Total 1719.64 / 1719.64 Balance 1719.64 / 1719.64 Weight last 48 hrs Weight 48.988 kg Physical Exam Const: GENERAL APPEARANCE: lethargic, ill appearing ([place]), frail appearing and other (Sleeping, BiPAP in situ.) Chest: COMMONS NORMALS: normal inspection of the chest Resp: OTHER: BiPAP in situ. Remarkable crackles with significant bronchial breath sounds on the right. No wheezes/rhonchi appreciated. Cardio: COMMON NORMALS: no JVD RATE: tachycardic (Rate in the 110s.) HEART SOUNDS: S1 normal heart sound present and S2 normal heart sound present PERIPHERAL PULSES: Peripheral pulses 2+ throughout GI: COMMON NORMALS: Normal to inspection, nondistended, normoactive bowel sounds present Extremity: COMMON NORMALS: normal to inspection and no pedal edema Neuro: COMMON NORMALS: no focal motor deficits (otherwise) Skin: NARRATIVE SKIN EXAM: Remarkablly dry skin with dry mucous membrane. No obvious rashes/abnormal lesions appreciated. Data 12/18/24 09:05 12/18/24 09:05 Other Labs: ABG 12/18/24 10:18 pH 7.41 pCO2 45.3 H pO2 46.8 L HCO3 28.8 H O2 Saturation 83.2 Base Excess 3.5 H Serology: Flu test, RSV and COVID test all negative. Micro: Blood and urine culture ordered and pending. CXR: Radiologist's impression: IMPRESSION: 1. Large masslike density with associated infiltrate in the RIGHT upper lobe. 2. Areas of nodular consolidation identified throughout the mid and lower RIGHT lung and RIGHT basal pleural effusion. CTA Chest: Radiologist's impression: IMPRESSION: 1. Large lobulated solid mass centered in the RIGHT upper lobe extending into the hilum and mediastinum and along the fissure. Mass measures 7.4 x 7.3 x 7.3 cm. Highly suspicious for neoplasm. 2. Additional nodules and interstitial stranding in the RIGHT upper lobe highly suspicious for lymphangitic spread of tumor and additional metastatic sites. 3. Peripheral irregular opacifications in the RIGHT upper, middle and lower lobes. Suspect this is additional tumor extension which may be pleural-based. Some of the opacifications may be pneumonia or postobstructive atelectasis. 4. No pulmonary embolism. 5. Severe centrilobular emphysema. 6. Mediastinal and hilar lymphadenopathy. 7. Cirrhotic appearing liver. 8. Neither adrenal gland is well visualized. EKG 1: I personally reviewed and interpreted this EKG as follows: (EKG reviewed by me, and shows apparent sinus tachycardia with heart rate in the 110s, with no obvious significant ST abnormality.) ABG Interpretation 1: 12/18/24 10:18 ABG pH 7.41 ABG pCO2 45.3 H ABG pO2 46.8 L ABG HCO3 28.8 H ABG O2 Saturation 83.2 ABG Base Excess 3.5 H My Interpretation: Mild hypercapnia with no obvious metabolic or respiratory acidosis/alkalosis. A&P Assessment and plan 1. Severe sepsis: 2. Multifocal pneumonia: 3. Acute and chronic respiratory failure with hypoxia: 4. Urinary tract infection: 5. Mass of right lun. COPD (chronic obstructive pulmonary disease): Plan: 1. Severe sepsis likely due to multifocal pneumonia: Admit to ICU. Continue aggressive IV rehydration; 1 more bolus of normal saline ordered while in the ER. I will continue rehydration at 100 cc/h x 2 to 3 L, at least. Watch out for fluid overload. May adjust rate of the fluid as needed. Continue patient on IV antibiotics, namely, Rocephin vancomycin and Zosyn, interruptedly already started Rocephin and azithromycin. Await blood culture/urine culture results, make changes as needed. Continue other supportive treatment. I will start patient on a vasopressors if she does not respond to the fluid therapy. 2. Acute hypoxic respiratory failure with mild hypercapnia: This is likely due to combination of known COPD and #1 above in the face of known lung mass that is likely metastatic: Continue BiPAP, and adjust settings as needed. Respiratory therapy to treat as needed. Matt srivastavarafts every 4 hours, scheduled. Will ask him IV steroids. 3. UTI: Urinalysis not very impressive, but obviously is mild, with 2+ protein, and 2 11-20 WBCs. Even if urinalysis is false negative, patient is already on antibiotics, which will undoubtedly cover for the UTI. Otherwise, await urine culture results. 4. Suspected COPD exacerbation: See #2 above. 5. Lung masses. To be metastatic: Likely to be the primary complicating factor. Upon discharge, patient will need referral to oncology for further follow-up. Other Plans: Treat other symptoms empirically. Further plans to be adjusted as clinical picture evolves. Prognosis, at least on the medium to long time, is guarded. PDMP PDMP Reviewed: Not Reviewed Attestations Medical Necessity Statement*: Patient with severe sepsis and associated hypotension due to apparent multifocal pneumonia, against the backdrop of unconfirmed metastatic lung disease. Definitely, she Will require least 2 days of inpatient hospital stay. Critical Care Time: The high probability of a clinically significant, sudden or life threatening deterioration of the patient's [repiratory and neurologic] system(s) required my full and direct attention, intervention and personal management. The critical care time is as shown. This time is in addition to time spent performing any reported procedures but includes the following: [x] Data and vital sign review and interpretation [x] Patient assessment, examination and intervention [x] Documentation [x] Medication orders and management Critical Care Time (min): 35 Coding Level of Care Code Critical Care >/= 30 minutes Diagnoses Severe sepsis A41.9; R65.20 Multifocal pneumonia J18.8 Acute and chronic respiratory failure with hypoxia J96.21 Urinary tract infection N39.0 Mass of right lung R91.8 COPD (chronic obstructive pulmonary disease) J44.9
[2024-12-18 13:50] LABS: Lactic Acid level (Lactate) 3.3 mmol/L (0.5-2.2)
[2024-12-18] MEDS: piperacillin-tazobactam 3.375 GM in sodium chloride 0.9% (plus) 50 ML IV ×2 (14:32→21:57)
[2024-12-18] MEDS: pantoprazole 40 mg SDV IVP (14:33)
[2024-12-18] MEDS: norepinephrine 4 MG/250 ML BAG 30 MG IV (16:00)
--- NOTE | 2024-12-18 19:50 | PM.CCNAC ---
Critical Care Event Note The high probability of a clinically significant, sudden or life threatening deterioration of the patient's [] system(s) required my full and direct attention, intervention and personal management. The critical care time is as shown. This time is in addition to time spent performing any reported procedures but includes the following: [x] Data and vital sign review and interpretation [x] Patient assessment, examination and intervention [x] Documentation [x] Medication orders and management Critical Care Time Code activated: No Critical Care Time (min): 10 Additional information about critical care time: -patient was seen -nursing staff report patient was resporting she didnot want aggressive intervention, such as cpr or intubation - Patient was examined, she is alert oriented x 3, following all commands, daughter at bedside - She is on BiPAP 40%, in mild respiratory distress - I had a detailed discussion with the aunt about her goals of care - Discussed her reports to nursing staff - With nursing staff at bedside with her daughter at bedside - Rosa tells me that she does not want to have CPR, she does not want to defibrillation, does not want to have aggressive intervention and she does not want to be intubated - Discussed risk and benefits, she voiced understanding, all questions answered - Discussed that if her condition worsens, and she were to be critically ill, and the likelihood of meaningful recovery is unlikely, she just wants to be kept comfortable and to pass away comfortably without aggressive interventions -Daughter at bedside also confirms - Also discussed with her daughter CT scan of the chest as below 1. Large lobulated solid mass centered in the RIGHT upper lobe extending into the hilum and mediastinum and along the fissure. Mass measures 7.4 x 7.3 x 7.3 cm. Highly suspicious for neoplasm. 2. Additional nodules and interstitial stranding in the RIGHT upper lobe highly suspicious for lymphangitic spread of tumor and additional metastatic sites. 3. Peripheral irregular opacifications in the RIGHT upper, middle and lower lobes. Suspect this is additional tumor extension which may be pleural-based. Some of the opacifications may be pneumonia or postobstructive atelectasis. 4. No pulmonary embolism. 5. Severe centrilobular emphysema. 6. Mediastinal and hilar lymphadenopathy. 7. Cirrhotic appearing liver. 8. Neither adrenal gland is well visualized. - Daughter is aware about the lung cancer, she was supposed to have a PET scan this week, Rosa is a smoker Coding Level of Care Code Acute Code for Chg Fwd
[2024-12-19] VITALS (66 sets, daily range): BP systolic 91–139; BP diastolic 30–77; PULSE 85–109; RESP 13–35; TEMP 36.3–37.1; O2SAT 89–98
[2024-12-19 04:54] LABS: Hematocrit 35.5 % (36-47); Hemoglobin 11.30 g/dL (11.27-16.99); Mean Corpuscular HGB Conc 31.8 g/dL (30-55); Mean Corpuscular Hemoglobin 27.7 pg (27-33); Mean Corpuscular Volume 87.0 fl (85-98); Nucleated Red Blood Cells % 0 %; Platelet Count 270 10^3/cmm (157-399); Red Blood Count 4.08 10^6/uL (3.85-5.65); White Blood Count 22.68 10^3/uL (3.29-11.43)
[2024-12-19 05:11] LABS: Magnesium 2.2 mg/dL (1.7-2.3)
[2024-12-19] MEDS: piperacillin-tazobactam 3.375 GM in sodium chloride 0.9% (plus) 50 ML IV ×3 (05:52→21:15)
[2024-12-19 08:01] LABS: Alanine Aminotransferase 10 U/L (0-33); Albumin Level 3.1 g/dL (3.5-5.2); Alkaline Phosphatase 121 U/L (35-105); Anion Gap 17.1 (5-19); Aspartate Amino Transferase 14 U/L (0-32); Blood Urea Nitrogen 16 mg/dL (8-23); Calcium 9.0 mg/dL (8.5-10.5); Carbon Dioxide 25 mmol/L (22-29); Chloride 108 mmol/L (98-107); Globulin 3.0 g/dL (1.3-4.6); Glucose 131 mg/dL (65-115); Osmolality Calculated 307 mOsm/kg (285-295); Potassium 3.1 mmol/L (3.5-5.1); Sodium 147 mmol/L (136-145); Total Protein 6.1 g/dL (6.6-8.7)
--- NOTE | 2024-12-19 09:24 | PM.PN ---
Subjective Subjective: Patient is seen this morning in the ICU. She was premature awake, unable to answer a lot of questions. She was able to remember her friend, Marguerite, calling EMS because of severe difficulty breathing. She reports feeling much better. She reports being very hungry and thirsty, and request for some food, including coffee and water. She has no new complaints. Overnight, patient reported to have, after speaking with the [id number], who joined in via [employer] last night, elected to make herself DNR. She also confirms to me clearly and coherently that she definitely wants to be DNR. Vitals/I&O/Wt Last Vital Signs Temp 98.8 F 12/19/24 08:16 Pulse 96 12/19/24 07:24 Resp 18 12/19/24 07:15 BP 116/77 12/19/24 04:00 Pulse Ox 96 12/19/24 07:15 O2 Del Method Nasal Cannula 12/19/24 07:15 O2 Flow Rate 6 12/19/24 07:15 FiO2 40 12/19/24 03:38 12/18/24 12/19/24 12/19/24 22:59 06:59 14:59 Intake Total 434.65 / 3053.39 1300 / 4353.39 Balance 434.65 / 3053.39 1300 / 4353.39 Weight last 48 hrs Weight 47.9 kg Weight 48 kg Weight 48.988 kg Physical Exam Narrative: General: Awake but mildly drowsy. Very weak looking. No obvious respiratory distress at rest. Neuro/Psych: Cooperative. Oriented x 3 Chest/Resp: Bilateral equal air entry; chest clinically clear. CVS: Rhythm: Regular heart rate and rhythm. No obvious murmurs appreciated. GI: Soft and non-tender abdomen. No obvious organomegaly. Extremities: Bilateral equal pulses. No obvious pitting pedal edema. Data 12/19/24 04:22 12/19/24 04:22 Other Imaging: My impression: No new imaging results for review today. A&P Assessment and plan 1. Multifocal pneumonia: 2. Mass of right lun. Severe sepsis: 4. Acute and chronic respiratory failure with hypoxia: 5. HTN (hypertension): Plan: 1. Severe sepsis due to multifocal pneumonia: The sepsis is apparently resolving. I will try to wean the patient from Levophed drip. If able to wean off Levophed drip, will transfer the patient to the medical floor, and continue monitor on telemetry. 2. Acute on chronic hypoxic respiratory failure, with associated known COPD: Currently, she is on 4-6 L by nasal cannula; continue to wean off as tolerated. Continue DuoNeb updrafts. Adding Solumedrol IV. 3. Right lung mass, suspected to be metastatic. Apparently,, patient had conversation with [id number] about this yesterday. Otherwise, she is not able to confirm to me at this time about known diagnosis of lung cancer. I think patient would benefit from consult with palliative care only at this time. I do not foresee necessity for hospice at this time. Most probably, when patient's pneumonia is fully treated & resolved, she can further explore other treatment options abt the suspected upon discharge. 4. Essential hypertension: Blood pressure still on the low side, for which patient is on Levophed for the hypotension from the sepsis. Will continue to hold home antihypertensive medications at this time. PDMP PDMP Reviewed: Not Reviewed Attestations Medical Necessity Statement*: Still severely sick patient, will still require up to 2 days of hospital stay. If able to wean off Levophed drip at this time, she could be transferred to the medical floor. See the assessment and plan above for more details Coding Level of Care Code Acute Code for [facility] Fwd Diagnoses Multifocal pneumonia J18.8 Mass of right lung R91.8 Severe sepsis A41.9; R65.20 Acute and chronic respiratory failure with hypoxia J96.21 HTN (hypertension) I10
[2024-12-19] MEDS: methylPREDNISolone sod succ 125 mg/2 mL INJ 60 MG IVP ×2 (11:32→19:42)
[2024-12-19] MEDS: pantoprazole 40 mg SDV IVP (13:19)
--- NOTE | 2024-12-19 20:19 | PC.NURSE ---
Patient transferred to [place] [id number]. All belongings sent with patient and confirmed by friend at bedside. Report given to Leyda.
[2024-12-20] VITALS (17 sets, daily range): BP systolic 105–122; BP diastolic 56–70; PULSE 66–92; RESP 16–17; TEMP 36.3–37.2; O2SAT 89–96
[2024-12-20] MEDS: methylPREDNISolone sod succ 125 mg/2 mL INJ 60 MG IVP ×2 (03:19→11:00)
[2024-12-20 05:26] LABS: Hematocrit 33.2 % (36-47); Hemoglobin 10.70 g/dL (11.27-16.99); Mean Corpuscular HGB Conc 32.2 g/dL (30-55); Mean Corpuscular Hemoglobin 28.3 pg (27-33); Mean Corpuscular Volume 87.8 fl (85-98); Nucleated Red Blood Cells % 0 %; Platelet Count 211 10^3/cmm (157-399); Red Blood Count 3.78 10^6/uL (3.85-5.65); White Blood Count 17.93 10^3/uL (3.29-11.43)
[2024-12-20] MEDS: piperacillin-tazobactam 3.375 GM in sodium chloride 0.9% (plus) 50 ML IV ×3 (05:41→21:09)
[2024-12-20 05:47] LABS: Alanine Aminotransferase 15 U/L (0-33); Albumin Level 2.7 g/dL (3.5-5.2); Alkaline Phosphatase 97 U/L (35-105); Anion Gap 14.2 (5-19); Aspartate Amino Transferase 25 U/L (0-32); Blood Urea Nitrogen 14 mg/dL (8-23); Calcium 8.6 mg/dL (8.5-10.5); Carbon Dioxide 25 mmol/L (22-29); Chloride 108 mmol/L (98-107); Globulin 2.3 g/dL (1.3-4.6); Glucose 130 mg/dL (65-115); Osmolality Calculated 298 mOsm/kg (285-295); Potassium 4.2 mmol/L (3.5-5.1); Sodium 143 mmol/L (136-145); Total Protein 5.0 g/dL (6.6-8.7)
[2024-12-20 05:48] LABS: Magnesium 2.0 mg/dL (1.7-2.3)
[2024-12-20] MEDS: pantoprazole 40 mg SDV IVP (13:36)
--- NOTE | 2024-12-20 13:45 | P.PN_ITS ---
Subjective 2 Subjective: Patient is seen again this morning in the company of the friend. She reports feeling much better. She request for possible discharge, while clarifying that she has oxygen at home. The nurse reports the patient uses 2 L/min of oxygen at home. She denies any new complaints Vitals/I&O/Wt Last Vital Signs Temp 97.5 F L 12/20/24 12:00 Pulse 84 12/20/24 12:00 Resp 16 12/20/24 12:00 BP 111/65 12/20/24 12:00 Pulse Ox 94 12/20/24 11:54 O2 Del Method Nasal Cannula 12/20/24 11:54 O2 Flow Rate 2 12/20/24 11:39 FiO2 40 12/19/24 03:38 12/19/24 12/20/24 12/20/24 22:59 06:59 14:59 Intake Total 1650 / 3208.75 50 / 3258.75 647.5 / 647.5 Balance 1650 / 3208.75 50 / 3258.75 647.5 / 647.5 Weight last 48 hrs Weight 46.72 kg Weight 47.9 kg Weight 48 kg Physical Exam 2 Narrative: General: Awake and alert. Mild respiratory distress noted with mild exertion in bed. Neuro/Psych: Cooperative. Oriented x 3 Chest/Resp: Stable crackles slight bronchial breath sounds CVS: Rhythm: Regular heart rate and rhythm. No obvious murmurs appreciated. GI: Soft and non-tender abdomen. No obvious organomegaly. Extremities: Bilateral equal pulses. No obvious pitting pedal edema. Data 12/20/24 05:09 12/20/24 05:09 A&P Assessment and plan 1. Acute and chronic respiratory failure with hypoxia: 2. Multifocal pneumonia: 3. Mass of right lun. Abnormal urinalysis: 5. COPD (chronic obstructive pulmonary disease): 6. Essential hypertension: Plan: 1. Acute on chronic hypoxic respiratory failure due to combination of multifocal pneumonia plus known lung mass: This is remarkably resolving. Patient currently on 4 L/min of oxygen. Continue to wean off oxygen. Continue IV antibiotics. Also, continue DuoNeb updrafts and steroids. We can de-escalate IV steroids to oral steroids at this time. 2. COPD: Not sure that this is clearly an exacerbation in the moment. However, we are treating this as a COPD exacerbation, and setting of #1 above. 3. Abnormal urinalysis: Urinalysis done on admission shows some 11-20 WBCs per hpf in addition to 2+ protein. WBC is negative. Leuk esterase and nitrates negative. Therefore, no UTI. Regardless, even if there was a real UTI, patient is already on IV antibiotics. The information above is documented here in advisement. PDMP PDMP Reviewed: Not Reviewed Attestations 2 Medical Necessity Statement*: Still actively acutely ill patient, requiring increased oxygen at 4 L/min. Still requires 1-2 more midnights to optimally treat acute medical problems and further control comorbidities. We will get physical therapy to ambulate, and evaluate. Anticipate discharge if we able to wean her back to home dose of oxygen. Anticipate discharge in the next 1 to 2 days. Coding Level of Care Code 74631 Diagnoses Acute and chronic respiratory failure with hypoxia J96.21 Multifocal pneumonia J18.8 Mass of right lung R91.8 Abnormal urinalysis R82.90 COPD (chronic obstructive pulmonary disease) J44.9 Essential hypertension I10
[2024-12-21 03:53] VITALS: BP 110/74; PULSE 68; RESP 18; TEMP 36.8; O2SAT 95
[2024-12-21] MEDS: piperacillin-tazobactam 3.375 GM in sodium chloride 0.9% (plus) 50 ML IV (05:14)
[2024-12-21 05:33] LABS: Alanine Aminotransferase 24 U/L (0-33); Albumin Level 2.7 g/dL (3.5-5.2); Alkaline Phosphatase 94 U/L (35-105); Anion Gap 13.4 (5-19); Aspartate Amino Transferase 28 U/L (0-32); Blood Urea Nitrogen 15 mg/dL (8-23); Calcium 8.3 mg/dL (8.5-10.5); Carbon Dioxide 25 mmol/L (22-29); Chloride 105 mmol/L (98-107); Globulin 2.5 g/dL (1.3-4.6); Glucose 131 mg/dL (65-115); Osmolality Calculated 291 mOsm/kg (285-295); Potassium 4.4 mmol/L (3.5-5.1); Sodium 139 mmol/L (136-145); Total Protein 5.2 g/dL (6.6-8.7)
[2024-12-21 05:38] LABS: Magnesium 1.9 mg/dL (1.7-2.3)
[2024-12-21 06:04] VITALS: PULSE 71
[2024-12-21 07:10] VITALS: BP 125/68; PULSE 72; RESP 17; TEMP 36.6; O2SAT 96
[2024-12-21 08:00] VITALS: PULSE 84; RESP 18; O2SAT 93
[2024-12-21 11:00] VITALS: BP 129/67; PULSE 84; RESP 16; TEMP 36.8; O2SAT 92
--- NOTE | 2024-12-21 11:11 | P.DS_ITS ---
Discharge Providers Date of Admission: 12/18/24 12:33 Date of Discharge: December 21, 2024 Attending Provider at Admission: Martin Barraza MD Attending Provider at Discharge: Martin Barraza MD Primary Care Provider: Linus Kasper Diagnoses at Discharge Discharge Diagnosis 1. Acute and chronic respiratory failure with hypoxia: 2. Multifocal pneumonia: 3. Mass of right lun. Abnormal urinalysis: 5. COPD (chronic obstructive pulmonary disease): 6. Essential hypertension: Reason for Visit Reason for Visit: SOB Brief History: Patient had presented to the ER 3 days ago with severe difficulty breathing and marked lethargy. Pertinent findings show apparent multifocal pneumonia in the presence of some suspected metastatic lung mass. IV antibiotics, namely vancomycin yesterday. Oxygen supplementation was given with the BiPAP and higher oxygen flow. DuoNeb orders were started, while patient was listed as some IV Solu-Medrol. Hospital Course Hospital Course All other concomitant symptoms were treated empirically. The active chronic medical problems were treated with home medications, as adjusted. Overall, patient gradually responded well to treatment, and therefore deemed fit for discharge today. Her oxygen requirement was decreased down to her baseline of 2 L/min at rest as at this morning. Patient is therefore transferred/discharged to [facility]. See my discharge orders and discharge instructions for more details. Physical Exam Narrative: General: Awake and alert patient. Resp: No obvious respiratory distress or difficulty breathing at rest, stable bilateral crackles and bronchial breath sounds.. Skin: No obvious rashes or new skin lesions. All other physical findings essentially within normal limits. Discharge Data Studies Completed and Pending Completed Studies During Hospitalization Category Date Time Status CT angio chest PE protcl [id number] Stat Cat Scan 12/18/24 10:27 Completed XR chest 1V portable [id number] Stat Exams 12/18/24 09:56 Completed Pending at discharge Category Date Time Status Blood Culture Stat Lab 12/18/24 10:38 Received Comprehensive Metabolic Panel AM LABS Lab 12/22/24 04:00 Ordered Vancomycin Trough Timed Lab 12/21/24 12:30 Ordered Radiology Impressions Chest X-Ray 12/18/24 09:56 1. Large masslike density with associated infiltrate in the RIGHT upper lobe. 2. Areas of nodular consolidation identified throughout the mid and lower RIGHT lung and RIGHT basal pleural effusion. Chest CTA 12/18/24 10:27 1. Large lobulated solid mass centered in the RIGHT upper lobe extending into the hilum and mediastinum and along the fissure. Mass measures 7.4 x 7.3 x 7.3 cm. Highly suspicious for neoplasm. 2. Additional nodules and interstitial stranding in the RIGHT upper lobe highly suspicious for lymphangitic spread of tumor and additional metastatic sites. 3. Peripheral irregular opacifications in the RIGHT upper, middle and lower lobes. Suspect this is additional tumor extension which may be pleural-based. Some of the opacifications may be pneumonia or postobstructive atelectasis. 4. No pulmonary embolism. 5. Severe centrilobular emphysema. 6. Mediastinal and hilar lymphadenopathy. 7. Cirrhotic appearing liver. 8. Neither adrenal gland is well visualized. Vitals Last Vital Signs Temp 97.9 F 12/21/24 07:10 Pulse 84 12/21/24 08:00 Resp 18 12/21/24 08:00 BP 125/68 12/21/24 07:10 Pulse Ox 93 12/21/24 08:00 O2 Del Method Nasal Cannula 12/21/24 08:00 O2 Flow Rate 3 12/21/24 08:00 FiO2 40 12/19/24 03:38 Discharge Plan Discharge Patient Disposition: Xfer SNF Condition: Stable Prescriptions: New ipratropium-albuterol 0.5 mg-3 mg(2.5 mg base)/3 mL Solution For Nebulization 3 ml inhalation Q6H PRN (Reason: Shortness Of Breath Or Wheezing) Qty: 90 1RF potassium chloride [Klor-Con M20] 20 mEq Tablet,Er Particles/Crystals 20 meq PO DAILY Qty: 14 0RF prednisone 5 mg tablets,dose pack See Rx Instructions .ROUTE .COMPLEX Qty: 21 0RF Rx Instructions: prednisone 5 mg: take 8 tablets (40 mg) on Day 1; 7 tablets (35 mg) on Day 2; then decrease by 1 tablet every day until finished amoxicillin-pot clavulanate 875-125 mg tablet 1 tab PO BID Qty: 14 0RF Continued aspirin 81 mg tablet,delayed release (DR/EC) 162 mg PO DAILY@0900 albuterol sulfate 90 mcg/actuation HFA aerosol inhaler 2 puff inhalation Q6H PRN (Reason: shortness of breath or wheezing) 30 Days Qty: 8.5 4RF buspirone 10 mg tablet 10 mg PO BID cholecalciferol (vitamin D3) 50 mcg (2,000 unit) capsule 50 mcg PO DAILY magnesium oxide 400 mg magnesium capsule 400 mg PO DAILY furosemide [Lasix] 20 mg tablet 20 mg PO QAM PRN (Reason: edema) Qty: 90 3RF ondansetron HCl 4 mg Tablet 4 mg PO Q4H PRN (Reason: Nausea) oxycodone 5 mg Tablet 5 mg PO Q4H PRN (Reason: Pain) Discharge Order = DC NOW: Discharge Order (Routine); Ordered 12/21/24 Ordered By: Martin Barraza Referrals: [facility] [Outside] Linus Kasper [Primary Care Provider, Family Practice] - 12/27/24 1:15 pm Discharge Diet: Regular Discharge Activity: Increase activity as tolerated Patient Instructions: Opioid Safety, Patient Portal & [employer] Instructions Activity Restrictions/Additional Instructions: Follow-up with primary care provider in the next 1 to 2 weeks. Otherwise, follow-up as directed by the receiving facility. Strongly advised to follow-up with oncologist for further evaluation of the right lung mass, except as otherwise to be directed by the PCP for Plan of Treatment: Continue home oxygen at 2 L/min; otherwise, increase up to 3 to 4 L/min as needed as current acute illness resolves. Discharge Attestations Time Spent in Discharge Care*: greater than 30 min Quality Metrics Clinical Quality Measures [ No reported AMI, CVA or VTE this stay] Coding Level of Care Code Acute Code for [facility] Fwd Diagnoses Acute and chronic respiratory failure with hypoxia J96.21 Multifocal pneumonia J18.8 Mass of right lung R91.8 Abnormal urinalysis R82.90 COPD (chronic obstructive pulmonary disease) J44.9 Essential hypertension I10 Hypertension type: essential hypertension
[2024-12-21] MEDS: pantoprazole 40 mg SDV IVP (11:51)
--- NOTE | 2024-12-21 12:09 | PC.SOCIAL ---
IMM Updated Updated pt on IMM. No questions voiced. Provided pt a copy. Initialed, dated, & timed a copy & placed in chart.
--- NOTE | 2024-12-21 12:14 | PC.NURSE ---
This nurse called report [place] DEVEN [place] [facility] [place] [facility] will pick pt up. RENETTA Paul is arranging ride.
[2024-12-21 15:06] VITALS: BP 129/67; PULSE 84; O2SAT 92
== END 2024-12-21 15:07 | disposition skilled nursing facility (03) | DRG 871 ==
LOC: ER 11:46 → ICU 12:34 → MEDSURG 12-19 20:00
PROVIDERS: Admitting Provider Family Medicine; Emergency Provider Family Medicine; PCP Family Medicine; Visit Provider Family Medicine
DX: A41.9 Sepsis, unspecified organism (principal); J18.9 Pneumonia, unspecified organism; J96.21 Acute and chronic respiratory failure with hypoxia; J44.1 Chronic obstructive pulmonary disease with (acute) exacerbation; J44.0 Chronic obstructive pulmonary disease with (acute) lower respiratory infection; N39.0 Urinary tract infection, site not specified; R65.20 Severe sepsis without septic shock; R91.8 Other nonspecific abnormal finding of lung field; I10 Essential (primary) hypertension; E78.5 Hyperlipidemia, unspecified; Z66 Do not resuscitate; F17.210 Nicotine dependence, cigarettes, uncomplicated; J43.2 Centrilobular emphysema; Z79.82 Long term (current) use of aspirin; Z79.899 Other long term (current) drug therapy; Z79.891 Long term (current) use of opiate analgesic
CPT/HCPCS: 36415; 36416; 36600; 71045; 71275; 80051; 80053; 80202; 81001; 82330; 82805; 82962; 83605; 83735; 85025; 87040; 87637; 93005; 94640; 94660; 96365; 96367; 96372; 96375; 97116; 97162; 97167; 97530; 97535; 99291; J0456; J0696; J1650; J2060; J2470; J2543; J2919; J3373; J7030; J7050; J7512; J9999